=== PATIENT | female | born 1960 | race American Indian/Alaskan Native ===

== ENCOUNTER 2016-07-30 18:59 | Inpatient (IN) | payer MEDICAID ==
[2016-07-30 18:59] VITALS: PULSE 85; BMI 22.6
[2016-07-30] MEDS ORDERED: MethylPREDNISolone 40 mg Vial IVP STA (19:36)
[2016-07-30] MEDS ORDERED: Albuterol-Ipratrop 3 mg / 0.5 (3 ml) UD INH STA ×3 (19:36)
--- NOTE | 2016-07-30 19:47 | C.PDOC ---
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 Patient denies fever, nausea, vomiting, diarrhea, or any other complaints. Time Seen by Provider: 07/30/16 19:28 Chief Complaint (Nursing): Shortness Of Breath History Per: Patient History/Exam Limitations: no limitations Onset/Duration Of Symptoms: Days (Few days) Current Symptoms Are (Timing): Still Present Severity: Mild Associated Symptoms: denies: Fever, Chills, Chest Pain, Dizziness Recent travel outside of the [place]: No Past Medical History Reviewed: Historical Data, Nursing Documentation, Vital Signs Vital Signs: Last Vital Signs Temp 98.2 F 07/30/16 19:14 Pulse 87 07/30/16 21:15 Resp 18 07/30/16 21:15 BP 131/89 07/30/16 21:15 Pulse Ox 100 07/30/16 21:15 - Medical History PMH: Asthma, CHF, COPD, HTN, Pneumonia Denies: Chronic Kidney Disease - [facility] Procedures ASSISTANCE WITH RESPIRATORY VENTILATION, 24-96 HRS, CPAP (02/14/16) RESPIRATORY VENTILATION, 24-96 CONSECUTIVE HOURS (02/14/16) ULTRASONOGRAPHY OF RIGHT AND LEFT HEART, TRANSESOPHAGEAL (07/28/15) Family History: States: Unknown Family Hx - Social History Hx Alcohol Use: No Hx Substance Use: Yes (hx of herion use) - Immunization History Hx Tetanus Toxoid Vaccination: No Hx Influenza Vaccination: No Hx Pneumococcal Vaccination: No Review Of Systems Except As Marked, All Systems Reviewed And Found Negative. Constitutional: Negative for: Fever, Chills Cardiovascular: Negative for: Chest Pain Respiratory: Positive for: Cough, Shortness of Breath Gastrointestinal: Negative for: Nausea, Vomiting, Diarrhea Neurological: Negative for: Headache, Dizziness Physical Exam - Physical Exam Appears: Non-toxic Skin: Warm, Dry, No Rash Head: Atraumatic, Normacephalic Eye(s): bilateral: Normal Inspection Oral Mucosa: Moist Neck: Normal ROM, Supple Cardiovascular: Rhythm Regular Respiratory: Decreased Breath Sounds (Bilaterally), Wheezing (scattered) Gastrointestinal/Abdominal: Soft, No Tenderness, No Guarding, No Rebound Pelvic: Adnexal Tenderness (Mild left adnexal pain) Extremity: Normal ROM, No Tenderness Neurological/Psych: Oriented x3, Normal Speech, Normal Cognition ED Course And Treatment - Laboratory Results Result Diagrams: 07/30/16 19:57 07/30/16 19:57 ECG: Interpreted By Me, Viewed By Me ECG Rhythm: Sinus Rhythm Interpretation Of ECG: Nonspecific ST/T changes Rate From EC O2 Sat by Pulse Oximetry: 99 Medical Decision Making Medical Decision Making: suspected chf, copd - labs imaging pending Plan: -- EKG -- CXR -- Labs -- Duoneb 1130: pt with opacity to rll. antibiotics dosed. ct added for abd pain. dr caputo accepts. resident bedside. Disposition - Disposition Disposition: HOSPITALIZED Disposition Time: 23:23 Condition: STABLE - Clinical Impression Clinical Impression: Chr obstructive pulmonary disease w/ acute lower respiratory infxn, Acute on chronic systolic CHF (congestive heart failure) - Scribe Statement The provider has reviewed the documentation as recorded by the Scribe Jimmie Lara All medical record entries made by the Scribe were at my direction and personally dictated by me. I have reviewed the chart and agree that the record accurately reflects my personal performance of the history, physical exam, medical decision making, and the department course for this patient. I have also personally directed, reviewed, and agree with the discharge instructions and disposition. Decision To Admit - Pt Status Changed To: Hospital Disposition Of: Inpatient - Admit Certification Admit to Inpatient:: After my assessment, the patient will require hospitalization for at least two midnights. This is because of the severity of symptoms shown, intensity of services needed, and/or the medical risk in this patient being treated as an outpatient. - InPatient: Physician Admission Certification: I certify that this patient requires 2 or more midnights of care for the following reason:: pt poor outpt candidate, low EF, needs iv dureisis. persistent wheezing in er - . Bed Request Type: Telemetry Admitting Physician: Sascha Caputo Jr. Patient Diagnosis: Chr obstructive pulmonary disease w/ acute lower respiratory infxn, Acute on chronic systolic CHF (congestive heart failure)
[2016-07-30 20:04] LABS: BASO # 0.1 K/uL (0.0-0.2); BASO % 0.8 % (0.0-2.0); EOS # 0.1 K/uL (0.0-0.7); EOS % 0.9 % (0.0-4.0); HEMATOCRIT 37.1 % (34.0-47.0); LYMPH # 1.6 K/uL (1.0-4.3); LYMPH % 12.5 % (20.0-40.0); MEAN CELL VOLUME 72.2 fL (81.0-99.0); MEAN CORPUSCULAR HEMOGLOBIN 22.8 pg (27.0-31.0); MEAN CORPUSCULAR HGB CONC 31.6 g/dL (33.0-37.0); MONO # 0.7 K/uL (0.0-0.8); MONO % 5.8 % (0.0-10.0); RED CELL DISTRIBUTION WIDTH 18.3 % (11.5-14.5)
[2016-07-30] MEDS ORDERED: Albuterol-Ipratrop 3 mg / 0.5 (3 ml) UD ONE (20:05)
[2016-07-30 20:09] LABS: CHLORIDE 90 mmol/L (98-107); POTASSIUM 4.1 mmol/L (3.6-5.2); SODIUM 130 mmol/L (132-148)
[2016-07-30 20:10] LABS: VENOUS BLOOD GAS BASE EXCESS 3.7 mmol/L (0.0-2.0); VENOUS BLOOD GAS PCO2 43 mmHg (40-60); VENOUS BLOOD PH 7.43 (7.32-7.43)
[2016-07-30 20:10] LABS: INR 1.2
[2016-07-30 20:11] LABS: GFR AFRICAN-AMERICAN > 60
[2016-07-30 20:12] LABS: ALB/GLOB RATIO 0.9 (1.0-2.1); ALKALINE PHOSPHATASE 81 U/L (38-126); ALT/SGPT 11 U/L (9-52); AST/SGOT 22 U/L (14-36); BLOOD UREA NITROGEN 16 mg/dL (7-17); CALCIUM 9.1 mg/dl (8.6-10.4); CARBON DIOXIDE 30 mmol/L (22-30); GLUCOSE,RANDOM 95 mg/dL (65-105); TOTAL PROTEIN 8.2 g/dL (6.3-8.3)
[2016-07-30] MEDS ORDERED: cefTRIAXone IV 1 gm in Dextros 50 ML IVPB ONE ×2 (20:17→20:43)
[2016-07-30] MEDS ORDERED: Azithromycin 500 MG in Sodium Chloride 0.9% 250 ML IVPB STA (20:17)
[2016-07-30] MEDS ORDERED: Azithromycin 500mg/250ML NS 500 MG/250 ML BAG IVPB ONE (20:43)
[2016-07-30] MEDS ORDERED: Iodixanol 320 MG/ML 100 ML BOTTLE IV ONE (21:52)
[2016-07-30] MEDS ORDERED: Albuterol HFA 90 mcg/actuation (8 g) IH PRN (21:53)
[2016-07-30] MEDS ORDERED: Albuterol-Ipratrop 3 mg / 0.5 (3 ml) UD INH PRN (21:56)
[2016-07-30] MEDS: Sodium Chloride 0.9% 1,000 ML IV SCH (23:05)
--- NOTE | 2016-07-30 23:16 | CT ---
EXAM: CT Abdomen and Pelvis With Intravenous Contrast CLINICAL HISTORY: 56 years old, female; Pain; Abdominal pain; Generalized; Additional info: Abd pain TECHNIQUE: Axial computed tomography images of the abdomen and pelvis with intravenous contrast. This CT exam was performed using one or more of the following dose reduction techniques: automated exposure control, adjustment of the mA and/or kV according to patient size, and/or use of iterative reconstruction technique. Coronal and sagittal reformatted images were created and reviewed. CONTRAST: 100 mL of VISIPAQUE 320 administered intravenously. COMPARISON: No relevant prior studies available. FINDINGS: Technically limited study. Cardiomegaly. Atelectasis/crowding of markings at lung bases. Limited evaluation of lung bases. Atherosclerosis. The liver, spleen and adrenal glands demonstrate no acute abnormalities. Evidence of pancreatic atrophy. Limited evaluation of the pancreas. Evidence of cholelithiasis. The kidneys are symmetric with no evidence of hydronephrosis. Fat containing right lumbar hernia posterior to the kidney with stranding. Limited evaluation of bowel without enteric contrast. No bowel obstruction. Cannot exclude mild bowel inflammation or underlying as visualized. Evidence of 2.6 cm collection in the cul-de-sac to the right of the rectum, uncertain etiology. Degenerative changes. IMPRESSION: Technically limited study. Cardiomegaly. Atelectasis/crowding of markings at lung bases. Limited evaluation of lung bases. Evidence of pancreatic atrophy. Limited evaluation of the pancreas. Evidence of cholelithiasis. Fat containing right lumbar hernia posterior to the kidney with stranding. Limited evaluation of bowel without enteric contrast. No bowel obstruction. Cannot exclude mild bowel inflammation or underlying as visualized. Evidence of 2.6 cm collection in the cul-de-sac to the right of the rectum, uncertain etiology.
[2016-07-30 23:25] VITALS: O2SAT 99
--- NOTE | 2016-07-31 01:48 | CP.PCM.HP ---
History of Present Illness - History of Present Illness History of Present Illness: cc: "productive cough and SOB" HPI: Patient is a 56 year old male with PMHx of systolic CHF, HTN, IDDM, CVA presenting to the ED complaining of shortness of breath and productive cough for 2 days. Patient reports that her cough has been worsening, with white/green sputum. Patient denies any fevers, chills, chest pain. She reports she still smokes at home and has no intention of stopping. She also reports using 3 bags of heroin a day which she reportedly snorts. She also reports some abdominal pain and says she is starting to go through withdrawals. She complains of constipation and has not had a bowel movement for 2 weeks. She denies any other complaints. PMD: Dr. Bishop PMH: as stated above PSH: AICD Allergies: NKDA FH: unknown SH: heavy smoker for years, still smokes about 3-4 ciggs per day. Denies alcohol use but uses 3 bags of heroin a day. Present on Admission - Present on Admission Any Indicators Present on Admission: No Review of Systems - Constitutional Constitutional: absent: Chills, Fever - EENT Eyes: absent: Change in Vision Ears: absent: Decreased Hearing Nose/Mouth/Throat: absent: Dysphagia, Sore Throat - Cardiovascular Cardiovascular: Dyspnea. absent: Chest Pain, Edema - Respiratory Respiratory: Cough, Dyspnea - Gastrointestinal Gastrointestinal: Abdominal Pain (LLQ and RLQ), Constipation. absent: Diarrhea , Nausea, Vomiting - Genitourinary Genitourinary: absent: Dysuria - Musculoskeletal Musculoskeletal: Back Pain (chronic). absent: Numbness, Tingling - Integumentary Integumentary: absent: Lesions, Wounds - Neurological Neurological: Focal Weakness (residual from past CVA), Weakness - Psychiatric Psychiatric: absent: Anxiety, Depression - Endocrine Endocrine: absent: Change in Body Appearance, Fatigue, Palpitations Past Patient History - Tetanus Immunizations Tetanus Immunization: Up to Date - Past Medical History & Family History Past Medical History?: Yes - Past Social History Smoking Status: Heavy Smoker > 10 Cigarettes Daily Alcohol: None Drugs: Opiates Home Situation {Lives}: With Family - CARDIAC Hx Congestive Heart Failure: Yes Hx Hypertension: Yes - PULMONARY Hx Asthma: Yes Hx Chronic Obstructive Pulmonary Disease (COPD): Yes Hx Pneumonia: Yes - NEUROLOGICAL HX Cerebrovascular Accident: Yes (R sided weakness) - HEENT Hx HEENT Problems: Yes Other/Comment: wears glasses - RENAL Hx Chronic Kidney Disease: No - ENDOCRINE/METABOLIC Hx Diabetes Mellitus Type 2: Yes - HEMATOLOGICAL/ONCOLOGICAL Hx Blood Disorders: Yes Hx Cancer: Yes (Breast and lung) - INTEGUMENTARY Hx Dermatological Problems: No - MUSCULOSKELETAL/RHEUMATOLOGICAL Hx Musculoskeletal Disorders: Yes Hx Falls: Yes - GASTROINTESTINAL Hx Gastrointestinal Disorders: Yes Hx Constipation: Yes - GENITOURINARY/GYNECOLOGICAL Hx Genitourinary Disorders: Yes Hx Incontinence: Yes - PSYCHIATRIC Hx Substance Use: Yes (hx of herion use) - SURGICAL HISTORY Hx Surgeries: Yes Hx Tubal Ligation: Yes Other/Comment: AICD implantation 2015 - ANESTHESIA Hx Anesthesia: Yes Hx Anesthesia Reactions: No Hx Malignant Hyperthermia: No Meds Allergies/Adverse Reactions: Allergies Allergy/AdvReac Type Severity Reaction Status Date / Time No Known Allergies Allergy Verified 07/30/16 19:16 Physical Exam - Constitutional Appears: Non-toxic, No Acute Distress, Older Than Stated Age - Head Exam Head Exam: ATRAUMATIC, NORMOCEPHALIC - Eye Exam Eye Exam: Conjunctival injection, EOMI, PERRL Pupil Exam: NORMAL ACCOMODATION, PERRL - ENT Exam ENT Exam: Mucous Membranes Moist. absent: Normal Oropharynx (poor dentition) - Respiratory Exam Respiratory Exam: Decreased Breath Sounds (bilaterl lower lobes), Clear to Auscultation Bilateral, NORMAL BREATHING PATTERN. absent: Rales, Rhonchi, Wheezes - Cardiovascular Exam Cardiovascular Exam: REGULAR RHYTHM, +S1, +S2, Systolic Murmur (grade 2 systolic ). absent: Gallop, Rubs - GI/Abdominal Exam GI & Abdominal Exam: Soft, Tenderness (LLQ and RLQ). absent: Distended, Guarding, Hernia - Rectal Exam Rectal Exam: Deferred - Extremities Exam Extremities exam: Negative for: normal inspection (right sided weakness, ), pedal edema, tenderness - Back Exam Back exam: NORMAL INSPECTION. absent: rash noted, tenderness - Neurological Exam Neurological exam: Alert, CN II-XII Intact, Oriented x3 Additional comments: right sided weakness from past CVA - Psychiatric Exam Psychiatric exam: Flat Affect - Skin Skin Exam: Dry, Intact, Normal Color, Warm Results - Vital Signs Recent Vital Signs: Last Vital Signs Temp 97.9 F 07/31/16 00:40 Pulse 77 07/31/16 00:40 Resp 20 07/31/16 00:40 BP 124/81 07/31/16 00:40 Pulse Ox 99 07/31/16 00:40 - Labs Result Diagrams: 07/30/16 19:57 07/30/16 19:57 Assessment & Plan - Assessment and Plan (Free Text) Plan: SOB w/ cough * CHF vs COPD exaccerbation * chest x ray- patch, atelectasis, AICD in place f/u official report * BNP 6080 * ECHO on 02/19/16 showed EF of 25-30% dilated left atrium and mitral regurge, and mild dyskinesis of inferior wall. [see full report] * Duonebs Q6 XOCHITL and Q2 PRN * Started Azithromycin 500 mg daily * Started Rocephin 1 gm daily * Lasix 20mg IV given in ED * Continue Lasix 40mg BID * Solumedrol 40mg IV Q12H * monitor symptoms Electrolyte abnormality * sodium and chloride borderline low * likely due to lasix * gentle rehydration Abdominal pain * Constipation vs withdrawal symptoms * Ct abd shows evidence of pancreatic atrophy, cholelithiasis, fat containing lumbar hernia, no bowel obstruction [see full report] * LFT's wnl * start colace BID * tylenol for pain HTN * resume home Coreg, isosorbide, and zestril * continue to monitor Drug abuse * advised on cessation * f/u UDS * Clonidine 0.1 Q8H for withdrawals DM * regular accuchecks * f/u A1C PPX * heparin 5000 U SC * Protonix 40mg po daily * zofran 4mg IVP Q6 PRN * SCD's Assessment and plan discussed with attending physician.
[2016-07-31] MEDS: Albuterol-Ipratrop 3 mg / 0.5 (3 ml) UD INH SCH ×3 (06:40→13:37)
[2016-07-31 07:27] LABS: BASO % 0.3 % (0.0-2.0); HEMATOCRIT 36.9 % (34.0-47.0); LYMPH # 1.3 K/uL (1.0-4.3); MEAN CELL VOLUME 71.7 fL (81.0-99.0); MEAN CORPUSCULAR HEMOGLOBIN 23.3 pg (27.0-31.0); MEAN CORPUSCULAR HGB CONC 32.4 g/dL (33.0-37.0); MONO # 0.1 K/uL (0.0-0.8); MONO % 0.7 % (0.0-10.0); RED CELL DISTRIBUTION WIDTH 18.3 % (11.5-14.5); WHITE BLOOD COUNT 12.6 K/uL (4.8-10.8)
[2016-07-31 07:55] LABS: CHLORIDE 93 mmol/L (98-107); POTASSIUM 4.1 mmol/L (3.6-5.2); SODIUM 131 mmol/L (132-148)
[2016-07-31 07:57] LABS: GFR AFRICAN-AMERICAN > 60
[2016-07-31 07:58] LABS: ALB/GLOB RATIO 0.9 (1.0-2.1); ALKALINE PHOSPHATASE 77 U/L (38-126); AST/SGOT 18 U/L (14-36); BILIRUBIN,TOTAL 0.7 mg/dL (0.2-1.3); BLOOD UREA NITROGEN 17 mg/dL (7-17); CARBON DIOXIDE 28 mmol/L (22-30); GLUCOSE,RANDOM 142 mg/dL (65-105); TOTAL PROTEIN 7.5 g/dL (6.3-8.3)
[2016-07-31 07:59] LABS: ALT/SGPT < 6 U/L (9-52); CALCIUM 8.5 mg/dl (8.6-10.4)
[2016-07-31] MEDS ORDERED: Fluticasone-Salmeterol 250-50mcg Diskus INH SCH (08:00)
--- NOTE | 2016-07-31 08:11 | RAD ---
PROCEDURE: CHEST RADIOGRAPH, 1 VIEW HISTORY: chest pain COMPARISON: 04/15/2016 FINDINGS: LUNGS: Left-sided pacemaker. Catheter tubing projects over the left deepti thorax. Patchy bibasilar airspace opacities with small bilateral pleural effusions and right mid to lower lung atelectasis. Biapical pleural thickening with upper lobe granulomatous changes. PLEURA: As above. CARDIOVASCULAR: Cardiomegaly. OSSEOUS STRUCTURES: Degenerative changes in the spine and shoulders. VISUALIZED UPPER ABDOMEN: Normal. OTHER FINDINGS: None. IMPRESSION: Left-sided pacemaker. Catheter tubing projects over the left deepti thorax. Patchy bibasilar airspace opacities with small bilateral pleural effusions and right mid to lower lung atelectasis. Biapical pleural thickening with upper lobe granulomatous changes.
[2016-07-31] MEDS: Pantoprazole 40 mg EC Tab PO SCH (09:11)
[2016-07-31] MEDS: MethylPREDNISolone 40 mg Vial IVP SCH ×2 (09:12→21:30)
--- NOTE | 2016-07-31 09:47 | RAD ---
PROCEDURE: CHEST RADIOGRAPH, 1 VIEW HISTORY: COPD exacerbation. COMPARISON: 07/30/2016 FINDINGS: LUNGS: Diffuse increased interstitial lung markings. Bibasilar airspace opacities. Small left pleural effusion. Right hilar prominence. Biapical pleural thickening with upper lobe granulomatous changes. PLEURA: As above. CARDIOVASCULAR: Cardiomegaly. Left-sided pacemaker. OSSEOUS STRUCTURES: Degenerative changes in the spine and shoulders. VISUALIZED UPPER ABDOMEN: Normal. OTHER FINDINGS: None. IMPRESSION: Diffuse increased interstitial lung markings. Bibasilar airspace opacities. Small left pleural effusion. Right hilar prominence. Biapical pleural thickening with upper lobe granulomatous changes.
--- NOTE | 2016-07-31 12:51 | CP.PCM.CON ---
History of Present Illness - History of Present Illness History of Present Illness: Reason for consultation: Shortness of breath/COPD exacerbation 56 year old male with PMHx of systolic CHF, HTN, IDDM, CVA presenting to the ED complaining of shortness of breath and productive cough for 2 days. Patient states cough is productive of yellowish sputum. Denies chest pain, denies fever or chills. She also reports some abdominal pain and says she is starting to go through withdrawals. Review of Systems - Review of Systems All systems: reviewed and no additional remarkable complaints except (Shortness of breath and productive cough) Past Patient History - Tetanus Immunizations Tetanus Immunization: Up to Date - Past Medical History & Family History Past Medical History?: Yes - Past Social History Smoking Status: Heavy Smoker > 10 Cigarettes Daily - CARDIAC Hx Congestive Heart Failure: Yes Hx Hypertension: Yes - PULMONARY Hx Asthma: Yes Hx Chronic Obstructive Pulmonary Disease (COPD): Yes Hx Pneumonia: Yes - NEUROLOGICAL HX Cerebrovascular Accident: Yes (R sided weakness) - HEENT Hx HEENT Problems: Yes Other/Comment: wears glasses - RENAL Hx Chronic Kidney Disease: No - ENDOCRINE/METABOLIC Hx Diabetes Mellitus Type 2: Yes - HEMATOLOGICAL/ONCOLOGICAL Hx Blood Disorders: Yes Hx Cancer: Yes (Breast and lung) - INTEGUMENTARY Hx Dermatological Problems: No - MUSCULOSKELETAL/RHEUMATOLOGICAL Hx Musculoskeletal Disorders: Yes Hx Falls: Yes - GASTROINTESTINAL Hx Gastrointestinal Disorders: Yes Hx Constipation: Yes - GENITOURINARY/GYNECOLOGICAL Hx Genitourinary Disorders: Yes Hx Incontinence: Yes - PSYCHIATRIC Hx Substance Use: Yes (hx of herion use) - SURGICAL HISTORY Hx Surgeries: Yes Hx Tubal Ligation: Yes Other/Comment: AICD implantation 2015 - ANESTHESIA Hx Anesthesia: Yes Hx Anesthesia Reactions: No Hx Malignant Hyperthermia: No Meds Allergies/Adverse Reactions: Allergies Allergy/AdvReac Type Severity Reaction Status Date / Time No Known Allergies Allergy Verified 07/30/16 19:16 - Medications Medications: Current Medications Acetaminophen (Tylenol 325mg Tab) 650 mg PO Q6 PRN PRN Reason: Pain, moderate (4-7) Last Admin: 07/30/16 23:05 Dose: 650 mg Albuterol (Ventolin Hfa 90 Mcg/Actuation (8 G)) 2 puff IH RQID PRN PRN Reason: Wheezing Albuterol/Ipratropium (Duoneb 3 Mg/0.5 Mg (3 Ml) Ud) 3 ml INH RQ6 [facility] Last Admin: 07/31/16 08:50 Dose: Not Given Albuterol/Ipratropium (Duoneb 3 Mg/0.5 Mg (3 Ml) Ud) 3 ml INH RQ2 PRN PRN Reason: Shortness of Breath Carvedilol (Coreg) 12.5 mg PO BID [facility] Last Admin: 07/31/16 09:11 Dose: 12.5 mg Clonidine HCl (Catapres) 0.1 mg PO Q8H [facility] Last Admin: 07/31/16 09:11 Dose: 0.1 mg Docusate Sodium (Colace) 100 mg PO BID [facility] Last Admin: 07/31/16 09:11 Dose: 100 mg Furosemide (Lasix) 40 mg PO BID [facility] Last Admin: 07/31/16 09:10 Dose: 40 mg Heparin Sodium (Porcine) (Heparin) 5,000 units SC Q8 [facility] Last Admin: 07/31/16 05:48 Dose: Not Given Sodium Chloride (Sodium Chloride 0.9%) 1,000 mls @ 80 mls/hr IV .[id number] [facility] Last Admin: 07/30/16 23:05 Dose: 80 mls/hr Azithromycin 500 mg/ Sodium (Chloride) 250 mls @ 250 mls/hr IVPB Q24H [facility] Ceftriaxone Sodium 1 gm/ (Sodium Chloride) 100 mls @ 100 mls/hr IVPB Q24H [facility] Isosorbide Mononitrate (Imdur) 60 mg PO DAILY [facility] Last Admin: 07/31/16 09:12 Dose: 60 mg Lisinopril (Zestril) 40 mg PO DAILY [facility] Last Admin: 07/31/16 09:11 Dose: 40 mg Methylprednisolone (Solu-Medrol) 40 mg IVP Q12 [facility] Last Admin: 07/31/16 09:12 Dose: 40 mg Ondansetron HCl (Zofran Inj) 4 mg IVP Q6 PRN PRN Reason: Nausea/Vomiting Pantoprazole Sodium (Protonix Ec Tab) 40 mg PO DAILY [facility] Last Admin: 07/31/16 09:11 Dose: 40 mg Pneumococcal Polyvalent Vaccine (Pneumovax 23 Vaccine) 0.5 ml IM .ONCE ONE Stop: 08/02/16 10:01 Fluticasone/Salmeterol (Advair Diskus 250/50) 1 puff INH RQ12 XOCHITL Tiotropium [place] (Spiriva) 18 mcg INH RQ24 XOCHITL Physical Exam - Head Exam Head Exam: ATRAUMATIC, NORMOCEPHALIC - Eye Exam Eye Exam: Normal appearance - ENT Exam ENT Exam: Mucous Membranes Moist - Neck Exam Neck exam: Positive for: Normal Inspection - Respiratory Exam Respiratory Exam: Decreased Breath Sounds - Cardiovascular Exam Cardiovascular Exam: REGULAR RHYTHM - GI/Abdominal Exam GI & Abdominal Exam: Normal Bowel Sounds, Soft - Extremities Exam Extremities exam: Positive for: normal inspection - Neurological Exam Neurological exam: Alert, Oriented x3 Results - Vital Signs Recent Vital Signs: Last Vital Signs Temp 98.2 F 07/31/16 08:01 Pulse 71 07/31/16 08:01 Resp 18 07/31/16 08:01 BP 143/84 07/31/16 09:11 Pulse Ox 99 07/31/16 08:01 - Labs Result Diagrams: 07/31/16 07:09 07/31/16 07:09 Labs: Laboratory Results - last 24 hr 07/31/16 07/31/16 07:09 07:09 WBC 12.6 H RBC 5.15 Hgb 12.0 Hct 36.9 MCV 71.7 L MCH 23.3 L MCHC 32.4 L RDW 18.3 H Plt Count 208 MPV 8.0 Neut % (Auto) 89.0 H Lymph % (Auto) 10.0 L [place] % (Auto) 0.7 Eos % (Auto) 0.0 Baso % (Auto) 0.3 Neut # 11.2 H Lymph # 1.3 [place] # 0.1 Eos # 0.0 Baso # 0.0 Sodium 131 L Potassium 4.1 Chloride 93 L Carbon Dioxide 28 Anion Gap 14 BUN 17 Creatinine 1.1 Est GFR ( Amer) > 60 Est GFR (Non-Af Amer) 51 Random Glucose 142 H Calcium 8.5 L Total Bilirubin 0.7 AST 18 ALT < 6 L D Alkaline Phosphatase 77 NT-Pro-B Natriuret Pep 4130 H Total Protein 7.5 Albumin 3.5 Globulin 4.0 H Albumin/Globulin Ratio 0.9 L Assessment & Plan (1) Chr obstructive pulmonary disease w/ acute lower respiratory infxn Status: Acute Comment: 56-year-old female with long history of smoking presented with increasing shortness of breath and productive cough consistent with COPD excellent cerebration. Continue IV steroids, nebulizer treatment. Continue IV antibiotics. Patient advised to quit smoking
[2016-07-31] MEDS: Sodium Chloride 0.9% 1,000 ML IV SCH (13:08)
--- NOTE | 2016-07-31 14:42 | CP.PCM.PN ---
<Richard Khan - Last Filed: 07/31/16 14:45> Subjective - Date & Time of Evaluation Date of Evaluation: 07/31/16 Time of Evaluation: 09:00 - Subjective Subjective: PGY2 on medicine Dr. Anguiano service: Pt seen and examined at bedside this morning. Pt reports slight improvement of SOB overnight. Pt also requests methadone for heroin, which she last used yesterday. Objective - Vital Signs/Intake and Output Vital Signs (last 24 hours): Temp Pulse Resp BP Pulse Ox 98.2 F 71 18 143/84 99 07/31/16 08:01 07/31/16 08:01 07/31/16 08:01 07/31/16 09:11 07/31/16 08:01 Intake and Output: 07/31/16 07/31/16 06:59 18:59 Intake Total 790 Balance 790 - Medications Medications: Current Medications Acetaminophen (Tylenol 325mg Tab) 650 mg PO Q6 PRN PRN Reason: Pain, moderate (4-7) Last Admin: 07/30/16 23:05 Dose: 650 mg Albuterol (Ventolin Hfa 90 Mcg/Actuation (8 G)) 2 puff IH RQID PRN PRN Reason: Wheezing Albuterol/Ipratropium (Duoneb 3 Mg/0.5 Mg (3 Ml) Ud) 3 ml INH RQ6 [facility] Last Admin: 07/31/16 13:37 Dose: Not Given Albuterol/Ipratropium (Duoneb 3 Mg/0.5 Mg (3 Ml) Ud) 3 ml INH RQ2 PRN PRN Reason: Shortness of Breath Carvedilol (Coreg) 12.5 mg PO BID [facility] Last Admin: 07/31/16 09:11 Dose: 12.5 mg Clonidine HCl (Catapres) 0.1 mg PO Q8H [facility] Last Admin: 07/31/16 09:11 Dose: 0.1 mg Docusate Sodium (Colace) 100 mg PO BID [facility] Last Admin: 07/31/16 09:11 Dose: 100 mg Furosemide (Lasix) 40 mg PO BID [facility] Last Admin: 07/31/16 09:10 Dose: 40 mg Heparin Sodium (Porcine) (Heparin) 5,000 units SC Q8 [facility] Last Admin: 07/31/16 13:36 Dose: Not Given Sodium Chloride (Sodium Chloride 0.9%) 1,000 mls @ 80 mls/hr IV .[id number] [facility] Last Admin: 07/31/16 13:08 Dose: 80 mls/hr Azithromycin 500 mg/ Sodium (Chloride) 250 mls @ 250 mls/hr IVPB Q24H [facility] Ceftriaxone Sodium 1 gm/ (Sodium Chloride) 100 mls @ 100 mls/hr IVPB Q24H [facility] Isosorbide Mononitrate (Imdur) 60 mg PO DAILY [facility] Last Admin: 07/31/16 09:12 Dose: 60 mg Lisinopril (Zestril) 40 mg PO DAILY [facility] Last Admin: 07/31/16 09:11 Dose: 40 mg Methylprednisolone (Solu-Medrol) 40 mg IVP Q12 [facility] Last Admin: 07/31/16 09:12 Dose: 40 mg Ondansetron HCl (Zofran Inj) 4 mg IVP Q6 PRN PRN Reason: Nausea/Vomiting Pantoprazole Sodium (Protonix Ec Tab) 40 mg PO DAILY [facility] Last Admin: 07/31/16 09:11 Dose: 40 mg Pneumococcal Polyvalent Vaccine (Pneumovax 23 Vaccine) 0.5 ml IM .ONCE ONE Stop: 08/02/16 10:01 Fluticasone/Salmeterol (Advair Diskus 250/50) 1 puff INH RQ12 [facility] Tiotropium [place] (Spiriva) 18 mcg INH RQ24 [facility] - Labs Labs: 07/31/16 07:09 07/31/16 07:09 PT 13.1 SECONDS (9.7-12.2) H 07/30/16 19:57 INR 1.2 07/30/16 19:57 APTT 31 SECONDS (21-34) 07/30/16 19:57 - Constitutional Appears: Non-toxic, No Acute Distress, Cachectic, Chronically Ill - Head Exam Head Exam: NORMAL INSPECTION - Eye Exam Eye Exam: Normal appearance - ENT Exam ENT Exam: Mucous Membranes Moist - Respiratory Exam Respiratory Exam: Decreased Breath Sounds, Rhonchi, NORMAL BREATHING PATTERN - Cardiovascular Exam Cardiovascular Exam: REGULAR RHYTHM, +S1, +S2. absent: Gallop, Rubs - GI/Abdominal Exam GI & Abdominal Exam: Soft, Normal Bowel Sounds. 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 * BNP 6080 * ECHO on 02/19/16 showed EF of 25-30% dilated left atrium and mitral regurge, and mild dyskinesis of inferior wall. [see full report] * Pulm Dr. Zeng consulted, help appreciated * Cardio Dr. Patel consulted, help appreciated * Duonebs Q6 [facility] and Q2 PRN * Started Azithromycin 500 mg daily * Started Rocephin 1 gm daily * Lasix 20mg IV given in ED * Continue Lasix 40mg BID * Solumedrol 40mg IV Q12H * Spiriva and Advair * monitor symptoms * F/U blood culture Electrolyte abnormality * sodium and chloride borderline low * likely due to lasix * gentle rehydration Abdominal pain * Constipation vs withdrawal symptoms * Ct abd shows evidence of pancreatic atrophy, cholelithiasis, fat containing lumbar hernia, no bowel obstruction [see full report] * LFT's wnl * start colace BID * tylenol for pain * F/U urine culture HTN * resume home Coreg, isosorbide, and zestril * continue to monitor Heroin use disorder * advised on cessation * f/u UDS * Clonidine 0.1 Q8H for withdrawals * Psych Dr. Barron consulted, help appreciated DM * regular accuchecks * f/u A1C PPX * heparin 5000 U SC * Protonix 40mg po daily * zofran 4mg IVP Q6 PRN * SCD's Assessment and plan discussed with attending physician. <Sascha Anguiano Jr. - Last Filed: 08/06/16 11:01> Objective - Vital Signs/Intake and Output Vital Signs (last 24 hours): Temp Pulse Resp BP Pulse Ox 98.4 F 60 17 178/102 H 99 08/01/16 07:55 08/01/16 07:55 08/01/16 07:55 08/01/16 10:31 08/01/16 07:55 - Labs Labs: 08/01/16 08:12 08/01/16 08:12 PT 13.1 SECONDS (9.7-12.2) H 07/30/16 19:57 INR 1.2 07/30/16 19:57 APTT 31 SECONDS (21-34) 07/30/16 19:57 Attending/Attestation - Attestation I have personally seen and examined this patient.: Yes I have fully participated in the care of the patient.: Yes I have reviewed all pertinent clinical information, including history, physical exam and plan: Yes Notes (Text): 08/06/16 11:01 Agree with resident note and plan of care
--- NOTE | 2016-07-31 15:56 | PCM.PSYCH ---
Initial Psychiatric Evaluation - Initial Psychiatric Evaluation Legal Status: Capacity Chief Complaint (in patient's own words): [id number] heroin and i am having withdrawal symptoms. Patient's Reaction to Hospitalization: i needed to come to the hhospital mbecaue i was short of breath. History of Present Illness and Precipitating Events: Pt is a 56 year old black domiciled, disabled female who came to the hospital because of SOB. Pt uses 3 bags of heroun na bday. She last used yesterday. Pt has no legal, miilitary or psychiatric history. pt suffers from CHF, IDDM, and HTN. Pt lives with daughter. She has a total of 3 daughters. Pt states there is no family history of mental illness or substance abuse pt sytarted using heroin in her 20s. pt snorts the heroin she does not use heroin intravenously Current Medications: Active Medications Generic Name Dose Route Start Last Admin Trade Name Freq PRN Reason Stop Dose Admin Acetaminophen 650 mg 07/30/16 21:47 07/30/16 23:05 Tylenol 325mg Tab PO 650 mg Q6 PRN Administration Pain, moderate (4-7) Albuterol 2 puff 07/30/16 21:53 Ventolin Hfa 90 Mcg/Actuation (8 G) IH RQID PRN Wheezing Albuterol/Ipratropium 3 ml 07/31/16 02:00 07/31/16 13:37 Duoneb 3 Mg/0.5 Mg (3 Ml) Ud INH Not Given RQ6 [facility] Albuterol/Ipratropium 3 ml 07/30/16 21:56 Duoneb 3 Mg/0.5 Mg (3 Ml) Ud INH RQ2 PRN Shortness of Breath Carvedilol 12.5 mg 07/31/16 10:00 07/31/16 09:11 Coreg PO 12.5 mg BID [facility] Administration Clonidine HCl 0.1 mg 07/31/16 02:02 07/31/16 09:11 Catapres PO 0.1 mg Q8H [facility] Administration Docusate Sodium 100 mg 07/31/16 10:00 07/31/16 09:11 Colace PO 100 mg BID [facility] Administration Furosemide 40 mg 07/31/16 10:00 07/31/16 09:10 Lasix PO 40 mg BID [facility] Administration Heparin Sodium (Porcine) 5,000 units 07/31/16 06:00 07/31/16 13:36 Heparin SC Not Given Q8 [facility] Sodium Chloride 1,000 mls @ 80 mls/hr 07/30/16 22:00 07/31/16 13:08 Sodium Chloride 0.9% IV 80 mls/hr .[id number] [facility] Administration Azithromycin 500 mg/ Sodium 250 mls @ 250 mls/hr 07/31/16 22:00 Chloride IVPB Q24H [facility] Ceftriaxone Sodium 1 gm/ 100 mls @ 100 mls/hr 07/31/16 21:00 Sodium Chloride IVPB Q24H [facility] Isosorbide Mononitrate 60 mg 07/31/16 10:00 07/31/16 09:12 Imdur PO 60 mg DAILY [facility] Administration Lisinopril 40 mg 07/31/16 10:00 07/31/16 09:11 Zestril PO 40 mg DAILY [facility] Administration Methylprednisolone 40 mg 07/31/16 10:00 07/31/16 09:12 Solu-Medrol IVP 40 mg Q12 [facility] Administration Ondansetron HCl 4 mg 07/30/16 21:47 Zofran Inj IVP Q6 PRN Nausea/Vomiting Pantoprazole Sodium 40 mg 07/31/16 10:00 07/31/16 09:11 Protonix Ec Tab PO 40 mg DAILY [facility] Administration Pneumococcal Polyvalent Vaccine 0.5 ml 08/02/16 10:00 Pneumovax 23 Vaccine IM 08/02/16 10:01 .ONCE ONE Fluticasone/Salmeterol 1 puff 07/31/16 08:00 Advair Diskus 250/50 INH RQ12 [facility] Tiotropium [place] 18 mcg 08/01/16 08:00 Spiriva INH RQ24 [facility] Past Psychiatric History - Past Psychiatric History Previous Treatment History: None Pertinent Medical Hx (Current Medical&Sleep Prob, Allergies): Allergies Allergy/AdvReac Type Severity Reaction Status Date / Time No Known Allergies Allergy Verified 07/30/16 19:16 Mometasone/Formoterol [Dulera 200 Mcg/5 Mcg Inhaler] 2 puff IH BID 07/28/15 Albuterol HFA [Ventolin HFA 90 mcg/actuation (8 g)] 2 puff IH QID PRN #1 inhaler 04/19/16 Carvedilol [Coreg] 12.5 mg PO BID #60 tab 04/19/16 Furosemide [Lasix] 40 mg PO BID #60 tab 04/19/16 Isosorbide Mononitrate [Imdur] 60 mg PO DAILY 07/30/16 Lisinopril [Zestril] 40 mg PO DAILY 07/30/16 hydrALAZINE [Apresoline] 25 mg PO BID 07/30/16 Review of Systems - Constitutional Constitutional: Weakness, Malaise - EENT Eyes: UNREMARKABLE Ears: UNREMARKABLE Additional comments: rhinorrhea - Cardiovascular Cardiovascular: UNREMARKABLE - Respiratory Respiratory: Cough, Dyspnea, Snoring - Gastrointestinal Gastrointestinal: Cramping - Genitourinary Genitourinary: Hx Renal/Bladder Calculi - Reproductive: Female Reproductive:Female: UNREMARKABLE - Menstruation Menstruation: UNREMARKABLE - Musculoskeletal Musculoskeletal: Arthralgias, Myalgias - Integumentary Integumentary: UNREMARKABLE - Neurological Neurological: UNREMARKABLE - Psychiatric Psychiatric: Anxiety - Endocrine Endocrine: UNREMARKABLE Mental Status Examination - Personal Presentation Personal Presentation: Looks older than stated age - Affect Affect: Blunted - Motor Activity Motor Activity: Calm - Reliability in Providing Information Reliability in Providing Information: Fair - Speech Speech: Relevant, Coherent - Mood Mood: Anxious - Formal Thought Process Formal Thought Process: No Impairment DSM 5 DX - DSM 5 DSM 5 Diagnosis: heroin withdrawal heroin use disorder mild - Recommended/Plan of Treatment Treatment Recommendations and Plan of Treatment: opipid withdrawal methadone taper starting at 10 mg opioid ude disorder mild PR CBT individual supportive therapy, psychoeducation Projected ELOS: 7 days Prognosis: fair Discharge Plan and Discharge Criteria: no acute withdrawal symptoms - Smoking Cessation Smoking Cessation Initiated: No Reason for not providing: pt refuses to quit smoking
[2016-07-31] MEDS ORDERED: Azithromycin 500 MG in Sodium Chloride 0.9% 250 ML IVPB SCH (22:00)
[2016-08-01] MEDS: Albuterol-Ipratrop 3 mg / 0.5 (3 ml) UD INH SCH ×2 (01:41→08:17)
[2016-08-01] MEDS: Sodium Chloride 0.9% 1,000 ML IV SCH (04:46)
--- NOTE | 2016-08-01 05:00 | CP.PCM.PN ---
<Inderjit Lugo - Last Filed: 08/01/16 06:59> Subjective - Date & Time of Evaluation Date of Evaluation: 08/01/16 Time of Evaluation: 06:35 - Subjective Subjective: Hospitalist Note-Dr. Anguiano's service Patient seen and examined at bedside. She reports having some arm pain around the site of her IV. Her breathing has improved but she has a mild cough. She states she is withdrawing and feels horrible. Per nursing, patient became agitated over night and her blood pressure has been elevated. The patient denies any fever, chills, productive cough. chest pain, or abdominal pain but has diffuse aches. Objective - Vital Signs/Intake and Output Vital Signs (last 24 hours): Temp Pulse Resp BP Pulse Ox 98 F 63 20 178/104 H 99 08/01/16 04:50 08/01/16 04:50 07/31/16 23:05 08/01/16 04:50 07/31/16 23:05 Intake and Output: 07/31/16 08/01/16 18:59 06:59 Intake Total 900 Balance 900 - Medications Medications: Current Medications Acetaminophen (Tylenol 325mg Tab) 650 mg PO Q6 PRN PRN Reason: Pain, moderate (4-7) Last Admin: 08/01/16 00:22 Dose: 650 mg Albuterol (Ventolin Hfa 90 Mcg/Actuation (8 G)) 2 puff IH RQID PRN PRN Reason: Wheezing Albuterol/Ipratropium (Duoneb 3 Mg/0.5 Mg (3 Ml) Ud) 3 ml INH RQ6 [facility] Last Admin: 08/01/16 01:41 Dose: Not Given Albuterol/Ipratropium (Duoneb 3 Mg/0.5 Mg (3 Ml) Ud) 3 ml INH RQ2 PRN PRN Reason: Shortness of Breath Carvedilol (Coreg) 12.5 mg PO BID [facility] Last Admin: 07/31/16 17:20 Dose: 12.5 mg Clonidine HCl (Catapres) 0.1 mg PO Q8H [facility] Last Admin: 08/01/16 03:52 Dose: 0.1 mg Docusate Sodium (Colace) 100 mg PO BID [facility] Last Admin: 07/31/16 17:19 Dose: 100 mg Furosemide (Lasix) 40 mg PO BID [facility] Last Admin: 07/31/16 17:20 Dose: 40 mg Heparin Sodium (Porcine) (Heparin) 5,000 units SC Q8 [facility] Last Admin: 07/31/16 21:29 Dose: Not Given Sodium Chloride (Sodium Chloride 0.9%) 1,000 mls @ 80 mls/hr IV .[id number] [facility] Last Admin: 08/01/16 04:46 Dose: Not Given Azithromycin 500 mg/ Sodium (Chloride) 250 mls @ 250 mls/hr IVPB Q24H [facility] Last Admin: 07/31/16 21:31 Dose: 250 mls/hr Ceftriaxone Sodium 1 gm/ (Sodium Chloride) 100 mls @ 100 mls/hr IVPB Q24H [facility] Last Admin: 07/31/16 21:29 Dose: 100 mls/hr Isosorbide Mononitrate (Imdur) 60 mg PO DAILY [facility] Last Admin: 07/31/16 09:12 Dose: 60 mg Lisinopril (Zestril) 40 mg PO DAILY [facility] Last Admin: 07/31/16 09:11 Dose: 40 mg Methylprednisolone (Solu-Medrol) 40 mg IVP Q12 [facility] Last Admin: 07/31/16 21:30 Dose: 40 mg Ondansetron HCl (Zofran Inj) 4 mg IVP Q6 PRN PRN Reason: Nausea/Vomiting Last Admin: 08/01/16 00:00 Dose: 4 mg Pantoprazole Sodium (Protonix Ec Tab) 40 mg PO DAILY [facility] Last Admin: 07/31/16 09:11 Dose: 40 mg Pneumococcal Polyvalent Vaccine (Pneumovax 23 Vaccine) 0.5 ml IM .ONCE ONE Stop: 08/02/16 10:01 Fluticasone/Salmeterol (Advair Diskus 250/50) 1 puff INH RQ12 [facility] Tiotropium [place] (Spiriva) 18 mcg INH RQ24 [facility] - Labs Labs: 07/31/16 07:09 07/31/16 07:09 PT 13.1 SECONDS (9.7-12.2) H 07/30/16 19:57 INR 1.2 07/30/16 19:57 APTT 31 SECONDS (21-34) 07/30/16 19:57 - Constitutional Appears: No Acute Distress, Cachectic, Chronically Ill - Head Exam Head Exam: ATRAUMATIC, NORMOCEPHALIC - Eye Exam Eye Exam: EOMI, Normal appearance, PERRL Pupil Exam: NORMAL ACCOMODATION, PERRL - ENT Exam ENT Exam: Mucous Membranes Moist - Neck Exam Neck Exam: Normal Inspection - Respiratory Exam Respiratory Exam: Decreased Breath Sounds, Rhonchi, NORMAL BREATHING PATTERN - Cardiovascular Exam Cardiovascular Exam: REGULAR RHYTHM, +S1, +S2. absent: Gallop, Rubs, Murmur - GI/Abdominal Exam GI & Abdominal Exam: Soft, Normal Bowel Sounds. 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 * BNP 6080 repeat was 4130 * ECHO on 02/19/16 showed EF of 25-30% dilated left atrium and mitral regurge, and mild dyskinesis of inferior wall. [see full report] * Pulm Dr. Zeng consulted, help appreciated * Cardio Dr. Patel consulted, help appreciated * Duonebs Q6 [facility] and Q2 PRN * Started Azithromycin 500 mg daily * Started Rocephin 1 gm daily * Lasix 20mg IV given in ED * Continue Lasix 40mg BID * Solumedrol 40mg IV Q12H * Spiriva and Advair * monitor symptoms * blood culture negative Electrolyte abnormality * sodium and chloride borderline low * likely due to lasix * gentle rehydration Abdominal pain * Constipation vs withdrawal symptoms * Ct abd shows evidence of pancreatic atrophy, cholelithiasis, fat containing lumbar hernia, no bowel obstruction [see full report] * LFT's wnl * continue colace BID * tylenol for pain * F/U urine culture HTN * resume home Coreg, isosorbide, and zestril * continue to monitor Heroin use disorder * advised on cessation * f/u UDS * Clonidine 0.1 Q8H for withdrawals * Psych Dr. Barron consulted, help appreciated DM * regular accuchecks * f/u A1C PPX * heparin 5000 U SC * Protonix 40mg po daily * zofran 4mg IVP Q6 PRN * SCD's <Sascha Anguiano Jr. - Last Filed: 08/06/16 11:02> Objective - Vital Signs/Intake and Output Vital Signs (last 24 hours): Temp Pulse Resp BP Pulse Ox 98.4 F 60 17 178/102 H 99 08/01/16 07:55 08/01/16 07:55 08/01/16 07:55 08/01/16 10:31 08/01/16 07:55 - Labs Labs: 08/01/16 08:12 08/01/16 08:12 PT 13.1 SECONDS (9.7-12.2) H 07/30/16 19:57 INR 1.2 07/30/16 19:57 APTT 31 SECONDS (21-34) 07/30/16 19:57 Attending/Attestation - Attestation I have personally seen and examined this patient.: Yes I have fully participated in the care of the patient.: Yes I have reviewed all pertinent clinical information, including history, physical exam and plan: Yes Notes (Text): 08/06/16 11:02 Agree with resident note and plan of care
--- NOTE | 2016-08-01 07:06 | CP.PCM.CON ---
History of Present Illness - History of Present Illness History of Present Illness: Pt with ICD ,cardiomyopathy,heroinb abuse presented with sob no cp. her productive cough worsenes with greenish sputum and decided to come in for treatment. Had a recent methadone taper Review of Systems - Review of Systems Systems not reviewed;Unavailable: Acuity of Condition - Constitutional Constitutional: absent: Weakness - EENT Eyes: absent: Blurred Vision Nose/Mouth/Throat: absent: Nasal Discharge - Cardiovascular Cardiovascular: absent: Chest Pain - Respiratory Respiratory: Dyspnea, Change in Mucous Color - Gastrointestinal Gastrointestinal: absent: Abdominal Pain - Genitourinary Genitourinary: absent: Dysuria - Integumentary Integumentary: absent: Bleeding Lesions - Neurological Neurological: absent: Abnormal Movements - Psychiatric Psychiatric: absent: Anxiety - Endocrine Endocrine: Fatigue Past Patient History - Tetanus Immunizations Tetanus Immunization: Up to Date - Past Medical History & Family History Past Medical History?: Yes - Past Social History Smoking Status: Heavy Smoker > 10 Cigarettes Daily - CARDIAC Hx Congestive Heart Failure: Yes Hx Hypertension: Yes - PULMONARY Hx Asthma: Yes Hx Chronic Obstructive Pulmonary Disease (COPD): Yes Hx Pneumonia: Yes - NEUROLOGICAL HX Cerebrovascular Accident: Yes (R sided weakness) - HEENT Hx HEENT Problems: Yes Other/Comment: wears glasses - RENAL Hx Chronic Kidney Disease: No - ENDOCRINE/METABOLIC Hx Diabetes Mellitus Type 2: Yes - HEMATOLOGICAL/ONCOLOGICAL Hx Blood Disorders: Yes Hx Cancer: Yes (Breast and lung) - INTEGUMENTARY Hx Dermatological Problems: No - MUSCULOSKELETAL/RHEUMATOLOGICAL Hx Musculoskeletal Disorders: Yes Hx Falls: Yes - GASTROINTESTINAL Hx Gastrointestinal Disorders: Yes Hx Constipation: Yes - GENITOURINARY/GYNECOLOGICAL Hx Genitourinary Disorders: Yes Hx Incontinence: Yes - PSYCHIATRIC Hx Substance Use: Yes (hx of herion use) - SURGICAL HISTORY Hx Surgeries: Yes Hx Tubal Ligation: Yes Other/Comment: AICD implantation 2016 - ANESTHESIA Hx Anesthesia: Yes Hx Anesthesia Reactions: No Hx Malignant Hyperthermia: No Meds Allergies/Adverse Reactions: Allergies Allergy/AdvReac Type Severity Reaction Status Date / Time No Known Allergies Allergy Verified 07/30/16 19:16 - Medications Medications: Current Medications Acetaminophen (Tylenol 325mg Tab) 650 mg PO Q6 PRN PRN Reason: Pain, moderate (4-7) Last Admin: 08/01/16 00:22 Dose: 650 mg Albuterol (Ventolin Hfa 90 Mcg/Actuation (8 G)) 2 puff IH RQID PRN PRN Reason: Wheezing Albuterol/Ipratropium (Duoneb 3 Mg/0.5 Mg (3 Ml) Ud) 3 ml INH RQ6 [facility] Last Admin: 08/01/16 01:41 Dose: Not Given Albuterol/Ipratropium (Duoneb 3 Mg/0.5 Mg (3 Ml) Ud) 3 ml INH RQ2 PRN PRN Reason: Shortness of Breath Carvedilol (Coreg) 12.5 mg PO BID [facility] Last Admin: 07/31/16 17:20 Dose: 12.5 mg Clonidine HCl (Catapres) 0.1 mg PO Q8H [facility] Last Admin: 08/01/16 03:52 Dose: 0.1 mg Docusate Sodium (Colace) 100 mg PO BID [facility] Last Admin: 07/31/16 17:19 Dose: 100 mg Furosemide (Lasix) 40 mg PO BID [facility] Last Admin: 07/31/16 17:20 Dose: 40 mg Heparin Sodium (Porcine) (Heparin) 5,000 units SC Q8 [facility] Last Admin: 08/01/16 05:53 Dose: Not Given Sodium Chloride (Sodium Chloride 0.9%) 1,000 mls @ 80 mls/hr IV .[id number] [facility] Last Admin: 08/01/16 04:46 Dose: Not Given Azithromycin 500 mg/ Sodium (Chloride) 250 mls @ 250 mls/hr IVPB Q24H [facility] Last Admin: 07/31/16 21:31 Dose: 250 mls/hr Ceftriaxone Sodium 1 gm/ (Sodium Chloride) 100 mls @ 100 mls/hr IVPB Q24H [facility] Last Admin: 07/31/16 21:29 Dose: 100 mls/hr Isosorbide Mononitrate (Imdur) 60 mg PO DAILY [facility] Last Admin: 07/31/16 09:12 Dose: 60 mg Lisinopril (Zestril) 40 mg PO DAILY [facility] Last Admin: 07/31/16 09:11 Dose: 40 mg Methylprednisolone (Solu-Medrol) 40 mg IVP Q12 [facility] Last Admin: 07/31/16 21:30 Dose: 40 mg Ondansetron HCl (Zofran Inj) 4 mg IVP Q6 PRN PRN Reason: Nausea/Vomiting Last Admin: 08/01/16 00:00 Dose: 4 mg Pantoprazole Sodium (Protonix Ec Tab) 40 mg PO DAILY [facility] Last Admin: 07/31/16 09:11 Dose: 40 mg Pneumococcal Polyvalent Vaccine (Pneumovax 23 Vaccine) 0.5 ml IM .ONCE ONE Stop: 08/02/16 10:01 Fluticasone/Salmeterol (Advair Diskus 250/50) 1 puff INH RQ12 [facility] Tiotropium [place] (Spiriva) 18 mcg INH RQ24 [facility] Physical Exam - Constitutional Appears: Older Than Stated Age, Chronically Ill - Head Exam Head Exam: ATRAUMATIC, NORMOCEPHALIC - Eye Exam Eye Exam: Normal appearance - ENT Exam ENT Exam: Mucous Membranes Moist - Respiratory Exam Respiratory Exam: NORMAL BREATHING PATTERN - Cardiovascular Exam Cardiovascular Exam: REGULAR RHYTHM - GI/Abdominal Exam GI & Abdominal Exam: Normal Bowel Sounds - Exam External exam: NORMAL EXTERNAL EXAM - Extremities Exam Extremities exam: Positive for: normal inspection - Neurological Exam Neurological exam: Alert - Psychiatric Exam Psychiatric exam: Depressed - Skin Skin Exam: Intact Results - Vital Signs Recent Vital Signs: Last Vital Signs Temp 98 F 08/01/16 04:50 Pulse 98 H 08/01/16 05:50 Resp 20 07/31/16 23:05 BP 163/98 H 08/01/16 05:50 Pulse Ox 99 07/31/16 23:05 - Labs Result Diagrams: 08/01/16 08:12 08/01/16 08:12 Labs: Laboratory Results - last 24 hr 07/31/16 07/31/16 07:09 07:09 WBC 12.6 H RBC 5.15 Hgb 12.0 Hct 36.9 MCV 71.7 L MCH 23.3 L MCHC 32.4 L RDW 18.3 H Plt Count 208 MPV 8.0 Neut % (Auto) 89.0 H Lymph % (Auto) 10.0 L Benson % (Auto) 0.7 Eos % (Auto) 0.0 Baso % (Auto) 0.3 Neut # 11.2 H Lymph # 1.3 Benson # 0.1 Eos # 0.0 Baso # 0.0 Sodium 131 L Potassium 4.1 Chloride 93 L Carbon Dioxide 28 Anion Gap 14 BUN 17 Creatinine 1.1 Est GFR ( Amer) > 60 Est GFR (Non-Af Amer) 51 Random Glucose 142 H Calcium 8.5 L Total Bilirubin 0.7 AST 18 ALT < 6 L D Alkaline Phosphatase 77 NT-Pro-B Natriuret Pep 4130 H Total Protein 7.5 Albumin 3.5 Globulin 4.0 H Albumin/Globulin Ratio 0.9 L Assessment & Plan (1) HTN (hypertension) Assessment and Plan: continue bp meds follow up icd check in office. Recent check nl Status: Chronic
[2016-08-01] MEDS ORDERED: Tiotropium 18 mcg Cap For Inhalation INH SCH (08:00)
[2016-08-01 08:28] LABS: BASO # 0.1 K/uL (0.0-0.2); BASO % 0.5 % (0.0-2.0); HEMATOCRIT 36.8 % (34.0-47.0); LYMPH # 1.4 K/uL (1.0-4.3); LYMPH % 11.9 % (20.0-40.0); MEAN CELL VOLUME 72.6 fL (81.0-99.0); MEAN CORPUSCULAR HEMOGLOBIN 23.1 pg (27.0-31.0); MEAN CORPUSCULAR HGB CONC 31.7 g/dL (33.0-37.0); MEAN PLATELET VOLUME 8.2 fL (7.2-11.7); MONO # 0.3 K/uL (0.0-0.8); MONO % 2.4 % (0.0-10.0); RED CELL DISTRIBUTION WIDTH 18.1 % (11.5-14.5); WHITE BLOOD COUNT 11.8 K/uL (4.8-10.8)
[2016-08-01 08:40] LABS: CHLORIDE 90 mmol/L (98-107); POTASSIUM 3.7 mmol/L (3.6-5.2); SODIUM 133 mmol/L (132-148)
[2016-08-01 08:42] LABS: GFR AFRICAN-AMERICAN > 60
[2016-08-01 08:43] LABS: ALB/GLOB RATIO 0.9 (1.0-2.1); ALKALINE PHOSPHATASE 82 U/L (38-126); ALT/SGPT 17 U/L (9-52); AST/SGOT 19 U/L (14-36); BILIRUBIN,TOTAL 0.6 mg/dL (0.2-1.3); BLOOD UREA NITROGEN 18 mg/dL (7-17); CARBON DIOXIDE 29 mmol/L (22-30); GLUCOSE,RANDOM 132 mg/dL (65-105); TOTAL PROTEIN 8.5 g/dL (6.3-8.3)
[2016-08-01 08:44] LABS: CALCIUM 8.7 mg/dl (8.6-10.4)
[2016-08-01 09:50] VITALS: BP 178/102; PULSE 60; RESP 17; TEMP 98.4
[2016-08-01] MEDS: MethylPREDNISolone 40 mg Vial IVP SCH (10:31)
[2016-08-01] MEDS: Pantoprazole 40 mg EC Tab PO SCH (10:31)
--- NOTE | 2016-08-01 17:02 | CP.PCM.DIS ---
Provider - Provider Date of Admission: 07/30/16 23:22 Attending physician: Sascha Anguiano Jr, MD Primary care physician: Dr. Anguiano Consults: Dr. Patel, Dr. Barron, Dr. Zeng Time Spent in preparation of Discharge (in minutes): 40 Hospital Course - Lab Results Lab Results: Most Recent Lab Values WBC 11.8 K/uL (4.8-10.8) H 08/01/16 08:12 RBC 5.07 Mil/uL (3.80-5.20) 08/01/16 08:12 Hgb 11.7 g/dL (11.0-16.0) 08/01/16 08:12 Hct 36.8 % (34.0-47.0) 08/01/16 08:12 MCV 72.6 fL (81.0-99.0) L 08/01/16 08:12 MCH 23.1 pg (27.0-31.0) L 08/01/16 08:12 MCHC 31.7 g/dL (33.0-37.0) L 08/01/16 08:12 RDW 18.1 % (11.5-14.5) H 08/01/16 08:12 Plt Count 216 K/uL (130-400) 08/01/16 08:12 MPV 8.2 fL (7.2-11.7) 08/01/16 08:12 Neut % (Auto) 85.2 % (50.0-75.0) H 08/01/16 08:12 Lymph % (Auto) 11.9 % (20.0-40.0) L 08/01/16 08:12 Cand[place] % (Auto) 2.4 % (0.0-10.0) 08/01/16 08:12 Eos % (Auto) 0.0 % (0.0-4.0) 08/01/16 08:12 Baso % (Auto) 0.5 % (0.0-2.0) 08/01/16 08:12 Neut # 10.0 K/uL (1.8-7.0) H 08/01/16 08:12 Lymph # 1.4 K/uL (1.0-4.3) 08/01/16 08:12 Candler # 0.3 K/uL (0.0-0.8) 08/01/16 08:12 Eos # 0.0 K/uL (0.0-0.7) 08/01/16 08:12 Baso # 0.1 K/uL (0.0-0.2) 08/01/16 08:12 PT 13.1 SECONDS (9.7-12.2) H 07/30/16 19:57 INR 1.2 07/30/16 19:57 APTT 31 SECONDS (21-34) 07/30/16 19:57 pO2 43 mm/Hg (30-55) 07/30/16 20:00 VBG pH 7.43 (7.32-7.43) 07/30/16 20:00 VBG pCO2 43 mmHg (40-60) 07/30/16 20:00 VBG HCO3 27.3 mmol/L 07/30/16 20:00 VBG Total CO2 29.8 mmol/L (22-28) H 07/30/16 20:00 VBG O2 Sat (Calc) 82.7 % (40-65) H 07/30/16 20:00 VBG Base Excess 3.7 mmol/L (0.0-2.0) H 07/30/16 20:00 VBG Potassium 3.6 mmol/L (3.6-5.2) 07/30/16 20:00 Sodium 133.0 mmol/l (132-148) 07/30/16 20:00 Chloride 102.0 mmol/L (98-107) 07/30/16 20:00 Glucose 81 mg/dl (65-105) 07/30/16 20:00 Lactate 0.7 mmol/L (0.7-2.1) 07/30/16 20:00 Sodium 133 mmol/L (132-148) 08/01/16 08:12 Potassium 3.7 mmol/L (3.6-5.2) 08/01/16 08:12 Chloride 90 mmol/L (98-107) L 08/01/16 08:12 Carbon Dioxide 29 mmol/L (22-30) 08/01/16 08:12 Anion Gap 18 (10-20) 08/01/16 08:12 BUN 18 mg/dL (7-17) H 08/01/16 08:12 Creatinine 0.9 MG/DL (0.7-1.2) 08/01/16 08:12 Est GFR ( Amer) > 60 08/01/16 08:12 Est GFR (Non-Af Amer) > 60 08/01/16 08:12 Random Glucose 132 mg/dL (65-105) H 08/01/16 08:12 Calcium 8.7 mg/dl (8.6-10.4) 08/01/16 08:12 Total Bilirubin 0.6 mg/dL (0.2-1.3) 08/01/16 08:12 AST 19 U/L (14-36) 08/01/16 08:12 ALT 17 U/L (9-52) 08/01/16 08:12 Alkaline Phosphatase 82 U/L (38-126) 08/01/16 08:12 Troponin I 0.0470 ng/mL (0.00-0.120) 07/30/16 19:57 NT-Pro-B Natriuret Pep 4130 pg/mL (0-900) H 07/31/16 07:09 Total Protein 8.5 g/dL (6.3-8.3) H 08/01/16 08:12 Albumin 4.0 g/dL (3.5-5.0) 08/01/16 08:12 Globulin 4.5 gm/dL (2.2-3.9) H 08/01/16 08:12 Albumin/Globulin Ratio 0.9 (1.0-2.1) L 08/01/16 08:12 Lipase 21 U/L (23-300) L 07/30/16 19:57 Venous Blood Potassium 3.6 mmol/L (3.6-5.2) 07/30/16 20:00 - Hospital Course Hospital Course: Patient is a 56 year old male with PMHx of systolic CHF, HTN, IDDM, CVA presenting to the ED complaining of shortness of breath and productive cough for 2 days. Patient reports that her cough has been worsening, with white/green sputum. Patient denies any fevers, chills, chest pain. She reports she still smokes at home and has no intention of stopping. She also reports using 3 bags of heroin a day which she reportedly snorts. She also reports some abdominal pain and says she is starting to go through withdrawals. She complains of constipation and has not had a bowel movement for 2 weeks. She denies any other complaints. Dr. Zeng, Dr. Patel and Dr. Barron were consulted. Home meds were resumed , as well as breathing treatments. Pt also received Methadone taper. Pt condition improved slightly but decided to leave AMA. After getting clearance from psych, risks of leaving AMA, including respiratory distress, seizure and were discussed with patient. Patient understood these risks and signed paperwork with witness. A dose of Methadone was given to the patient before she leaves, and patient urged to follow up with Dr. Anguiano as soon as possible. Patient verbalized understanding. Discharge Exam - Head Exam Head Exam: ATRAUMATIC, NORMOCEPHALIC Discharge Plan - Follow Up Plan Condition: STABLE Disposition: AGAINST MEDICAL ADVICE Instructions: Dyspnea (GEN)
--- NOTE | 2016-08-02 08:39 | CARD ---
APPROVED REPORT EKG Measurement Heart [id number] <Conclusion> Normal sinus rhythm with sinus arrhythmia Minimal voltage criteria for LVH, may be normal variant ST & T wave abnormality, consider anterolateral ischemia Prolonged QT Abnormal ECG
[2016-08-02] MEDS ORDERED: Pneumococcal 23-Valent Vaccine IM ONE (10:00)
== END 2016-08-01 13:30 | disposition left against medical advice (07) | DRG 541 ==
LOC: C.ER 18:59 → C.6T 21:47 → OBSVTOIN 23:22
PROVIDERS: ADMIT Internal Medicine; ATTEND Internal Medicine
PROC: HZ81ZZZ Medication Management for Substance Abuse Treatment, Methadone Maintenance (ICD-10-PCS; principal; 2016-07-31)
DX: J44.0 Chronic obstructive pulmonary disease with (acute) lower respiratory infection (principal); I50.23 Acute on chronic systolic (congestive) heart failure; F11.23 Opioid dependence with withdrawal; I69.351 Hemiplegia and hemiparesis following cerebral infarction affecting right dominant side; E87.8 Other disorders of electrolyte and fluid balance, not elsewhere classified; I11.0 Hypertensive heart disease with heart failure; E11.9 Type 2 diabetes mellitus without complications; J45.909 Unspecified asthma, uncomplicated; F17.210 Nicotine dependence, cigarettes, uncomplicated; K59.09 Other constipation; Z87.01 Personal history of pneumonia (recurrent); Z79.4 Long term (current) use of insulin; Z91.81 History of falling

== ENCOUNTER 2016-11-30 06:17 | Inpatient (IN) | payer MEDICAID ==
[2016-11-30 06:17] VITALS: PULSE 85; BMI 22.6
[2016-11-30 07:01] LABS: BASO # 0.1 K/uL (0.0-0.2); BASO % 0.9 % (0.0-2.0); EOS % 0.1 % (0.0-4.0); HEMATOCRIT 45.1 % (34.0-47.0); LYMPH # 1.4 K/uL (1.0-4.3); LYMPH % 10.1 % (20.0-40.0); MEAN CELL VOLUME 79.3 fL (81.0-99.0); MEAN CORPUSCULAR HEMOGLOBIN 26.8 pg (27.0-31.0); MEAN CORPUSCULAR HGB CONC 33.8 g/dL (33.0-37.0); MEAN PLATELET VOLUME 8.5 fL (7.2-11.7); MONO # 0.7 K/uL (0.0-0.8); MONO % 4.8 % (0.0-10.0); RED CELL DISTRIBUTION WIDTH 18.6 % (11.5-14.5); WHITE BLOOD COUNT 13.9 K/uL (4.8-10.8)
[2016-11-30 07:12] LABS: CHLORIDE 92 mmol/L (98-107)
[2016-11-30 07:13] LABS: POTASSIUM 3.6 mmol/L (3.6-5.2); SODIUM 132 mmol/L (132-148)
[2016-11-30 07:15] LABS: ALB/GLOB RATIO 1.1 (1.0-2.1); AST/SGOT 21 U/L (14-36); BILIRUBIN,TOTAL 0.8 mg/dL (0.2-1.3); BLOOD UREA NITROGEN 15 mg/dL (7-17); CARBON DIOXIDE 27 mmol/L (22-30); GFR AFRICAN-AMERICAN > 60; TOTAL PROTEIN 8.3 g/dL (6.3-8.3)
[2016-11-30 07:16] LABS: ALKALINE PHOSPHATASE 103 U/L (38-126); ALT/SGPT 20 U/L (9-52); CALCIUM 9.9 mg/dl (8.6-10.4); GLUCOSE,RANDOM 135 mg/dL (65-105)
[2016-11-30] MEDS ORDERED: Albuterol-Ipratrop 3 mg / 0.5 (3 ml) UD INH STA (07:35)
--- NOTE | 2016-11-30 07:36 | C.PDOC ---
History Of Present Illness 56 y/o female, with PMHx of COPD, CHF, HTN, and diabetes, presents to ED for evaluation of increased shortness of breath, productive cough, and congestion for the last couple days. Pt notes that she uses oxygen at home. (+) post tussive vomiting (+) chest pain with cough. According to signifcant other, pt has been using her oxygen more then usual secondary to sob.Otherwise, patient denies lightheadedness, headache, fever, lower extremity pain/swelling, or recent travel. Time Seen by Provider: 11/30/16 07:20 Chief Complaint (Nursing): Chest Pain History Per: Patient History/Exam Limitations: no limitations Onset/Duration Of Symptoms: Days (1) Current Symptoms Are (Timing): Still Present Associated Symptoms: denies: Nausea, Diaphoresis, Syncope Modifying Factors: None Exacerbating Factors: None Alleviating Factors: None Recent travel outside of the [place]: No Additional History Per: Patient Past Medical History Reviewed: Historical Data, Nursing Documentation, Vital Signs Vital Signs: Last Vital Signs Temp 97.7 F 11/30/16 16:29 Pulse 100 H 11/30/16 16:29 Resp 20 11/30/16 16:29 BP 137/93 H 11/30/16 16:29 Pulse Ox 99 11/30/16 17:14 - Medical History PMH: Asthma, CHF, COPD, CVA, HTN, Pneumonia - [facility] Procedures ASSISTANCE WITH RESPIRATORY VENTILATION, 24-96 HRS, CPAP (02/14/16) MEDS MGMT FOR SUBSTANCE ABUSE TREATMENT, METHADONE MAINT (07/30/16) RESPIRATORY VENTILATION, 24-96 CONSECUTIVE HOURS (02/14/16) ULTRASONOGRAPHY OF RIGHT AND LEFT HEART, TRANSESOPHAGEAL (07/28/15) Family History: States: Unknown Family Hx - Social History Hx Tobacco Use: Yes (Heavy smoker) Hx Alcohol Use: No Hx Substance Use: Yes (hx of herion use) - Immunization History Hx Tetanus Toxoid Vaccination: No Hx Influenza Vaccination: No Hx Pneumococcal Vaccination: No Review Of Systems Except As Marked, All Systems Reviewed And Found Negative. Constitutional: Negative for: Fever, Chills ENT: Positive for: Nose Congestion. Negative for: Nose Discharge, Throat Pain Cardiovascular: Negative for: Chest Pain, Palpitations, Edema, Light Headedness Respiratory: Positive for: Cough, Shortness of Breath, Sputum. Negative for: Hemoptysis Gastrointestinal: Negative for: Nausea, Vomiting, Abdominal Pain Neurological: Negative for: Headache, Dizziness Physical Exam - Physical Exam Appears: Non-toxic, Chronically Ill, Other (uncomfortable) Skin: Normal Color, Warm, Dry, No Rash Head: Atraumatic, Normacephalic Eye(s): bilateral: Normal Inspection, EOMI Nose: Normal Oral Mucosa: Moist Neck: Normal ROM, Supple Chest: Symmetrical, No Tenderness, Other (pacemaker over left upper chest wall) Cardiovascular: Rhythm Regular, No Murmur Respiratory: Decreased Breath Sounds, No Accessory Muscle Use, No Rales, Rhonchi , No Wheezing Gastrointestinal/Abdominal: Soft, No Tenderness Back: No CVA Tenderness Extremity: No Pedal Edema, No Other (right side weakness (chronic s/p CVA)) Neurological/Psych: Oriented x3, Normal Speech ED Course And Treatment - Laboratory Results Result Diagrams: 11/30/16 06:58 11/30/16 06:58 ECG: Interpreted By Me (Dr. Lenz), Viewed By Me ECG Rhythm: Sinus Rhythm ECG Interpretation: No Changes From Prior (07/30/16) Rate From EC (bpm) O2 Sat by Pulse Oximetry: 99 (on RA) Pulse Ox Interpretation: Normal - CT Scan/US Angio chest CT Other Rad Studies (CT/US): Read By Radiologist, Radiology Report Reviewed CT/US Interpretation: CTA chest PE protocol. Indication: Shortness of breath. Technique: Contiguous axial images were obtained through the chest with intravenous contrast enhancement. Sagittal and coronal reconstructions were generated and reviewed. This CT exam was performed using 1 or more of the falling dose reduction techniques: Automated exposure control, adjustment of the MAA and/or kV according to patient size, and/or use of iterative reconstruction technique. IV Contrast: 100 mL Visipaque. . Radiation dose ( DLP): 157.77 MGy-cm. Comparison: Chest x-ray performed 11/30/16, CT chest without contrast performed 07/28/15. Findings: Streak artifact obscures limited visualized portions of the inferior thyroid gland. The mediastinal and hilar vascular structures appear within normal limits. Cardiomegaly. Single lead left-sided AICD. No large central or segmental pulmonary embolus evident. Hyperinflation consistent with COPD. Extensive emphysematous changes. Patchy atelectasis or developing infiltrate at the left lung base. No pleural effusion. No pneumothorax. 6 mm pulmonary nodule at the left lung base (series 4, image 72). Limited visualized portions of the upper abdomen appears grossly unremarkable. Extensive degenerative changes. Osseous demineralization. Impression: No large central segmental pulmonary embolus identified. Cardiomegaly. Single lead left-sided AICD. 6 mm pulmonary nodule at the left lung base. Guidelines by the Fleischner society (radiology 2005; 237:395-400) suggests that in patients with low risk for lung cancer, nodules from 5 mm to 6 mm in diameter should have follow-up in approximately 12 months. In patients with high-risk, such as those were smokers, follow-up is recommended in 6 months. Patients with a known malignancy or risk for metastases should receive 3 month follow-up. Left basilar atelectasis. Developing infiltrate cannot be excluded. Correlate clinically. COPD/emphysema. Progress Note: Angio chest CT, blood work, CXR ordered and reviewed. Pt was given Aspirin, Carvedilol, and nebulizer treatment. On re-eval, Patient is resting comfortably with no wheezing, chest pain, or retractions. Oxygen saturation remains stable. Patient is alert and oriented x 3. Patient was advised to follow up with physician in 1-2 days. Disposition - Disposition Disposition: HOSPITALIZED Disposition Time: 13:00 Condition: STABLE - Clinical Impression Clinical Impression: COPD (chronic obstructive pulmonary disease), Congestive heart failure - PA / TOE STRIPPER / Resident Statement MD/DO has reviewed & agrees with the documentation as recorded. - Scribe Statement The provider has reviewed the documentation as recorded by the Rishi Jones All medical record entries made by the Rishi were at my direction and personally dictated by me. I have reviewed the chart and agree that the record accurately reflects my personal performance of the history, physical exam, medical decision making, and the department course for this patient. I have also personally directed, reviewed, and agree with the discharge instructions and disposition.
[2016-11-30] MEDS ORDERED: MethylPREDNISolone 40 mg Vial IVP STA (08:14)
[2016-11-30] MEDS ORDERED: MethylPREDNISolone 40 mg Vial ONE (08:46)
[2016-11-30] MEDS ORDERED: Albuterol-Ipratrop 3 mg / 0.5 (3 ml) UD ONE (08:49)
--- NOTE | 2016-11-30 09:14 | RAD ---
PROCEDURE: CHEST RADIOGRAPH, 1 VIEW HISTORY: Shortness of breath COMPARISON: None available. FINDINGS: LUNGS: Mild venous congestion with mild patchy increased markings at the right lung base. Minimal atelectatic changes in the right midlung zone. PLEURA: No pneumothorax or pleural fluid seen. CARDIOVASCULAR: Left-sided pacemaker. OSSEOUS STRUCTURES: No significant abnormalities. VISUALIZED UPPER ABDOMEN: Normal. OTHER FINDINGS: None. IMPRESSION: Mild venous congestion with mild patchy increased markings at the right lung base. Minimal atelectatic changes in the right midlung zone.
[2016-11-30] MEDS ORDERED: Iodixanol 320 mg/ml 150 ml Bottle IV ONE (10:21)
--- NOTE | 2016-11-30 11:33 | CT ---
CTA chest PE protocol Indication: Shortness of breath Technique: Contiguous axial images were obtained through the chest with intravenous contrast enhancement. Sagittal and coronal reconstructions were generated and reviewed. This CT exam was performed using 1 or more of the falling dose reduction techniques: Automated exposure control, adjustment of the MAA and/or kV according to patient size, and/or use of iterative reconstruction technique. IV Contrast: 100 mL Visipaque Radiation dose (DLP): 157.77 MGy-cm. Comparison: Chest x-ray performed 11/30/16, CT chest without contrast performed 07/28/15 Findings: Streak artifact obscures limited visualized portions of the inferior thyroid gland. The mediastinal and hilar vascular structures appear within normal limits. Cardiomegaly. Single lead left-sided AICD. No large central or segmental pulmonary embolus evident. Hyperinflation consistent with COPD. Extensive emphysematous changes. Patchy atelectasis or developing infiltrate at the left lung base. No pleural effusion. No pneumothorax. 6 mm pulmonary nodule at the left lung base (series 4, image 72). Limited visualized portions of the upper abdomen appears grossly unremarkable. Extensive degenerative changes. Osseous demineralization. Impression: No large central segmental pulmonary embolus identified. Cardiomegaly. Single lead left-sided AICD. 6 mm pulmonary nodule at the left lung base. Guidelines by the Fleischner society (radiology 2005; 237:395-400) suggests that in patients with low risk for lung cancer, nodules from 5 mm to 6 mm in diameter should have follow-up in approximately 12 months. In patients with high-risk, such as those were smokers, follow-up is recommended in 6 months. Patients with a known malignancy or risk for metastases should receive 3 month follow-up. Left basilar atelectasis. Developing infiltrate cannot be excluded. Correlate clinically. COPD/emphysema.
[2016-11-30] MEDS ORDERED: Azithromycin 500 MG in Sodium Chloride 0.9% 250 ML IVPB SCH ×2 (14:30→15:00)
[2016-11-30] MEDS ORDERED: Albuterol HFA 90 mcg/actuation (8 g) IH PRN (14:32)
[2016-11-30] MEDS ORDERED: Sodium Chloride 0.9% 1,000 ML IV SCH (14:45)
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
--- NOTE | 2016-11-30 18:02 | CP.PCM.CON ---
History of Present Illness - History of Present Illness History of Present Illness: Reason for consultation: Shortness of breath 56-year-old female with long history of smoking, COPD, CHF who presented to emergency room with 1 week history of shortness of breath associated with cough productive of greenish phlegm. Also complaining of vomiting for the past 1 day. Denies any chest pain but complaining of fevers chills and diaphoresis. Complaining of weight loss Review of Systems - Review of Systems All systems: reviewed and no additional remarkable complaints except (Shortness of breath and productive cough) Past Patient History - Tetanus Immunizations Tetanus Immunization: Up to Date - Past Medical History & Family History Past Medical History?: Yes - Past Social History Smoking Status: Heavy Smoker > 10 Cigarettes Daily - CARDIAC Hx Congestive Heart Failure: Yes Hx Hypertension: Yes - PULMONARY Hx Asthma: Yes Hx Chronic Obstructive Pulmonary Disease (COPD): Yes Hx Pneumonia: Yes - NEUROLOGICAL HX Cerebrovascular Accident: Yes (R sided weakness) - HEENT Hx HEENT Problems: Yes Other/Comment: wears glasses - RENAL Hx Chronic Kidney Disease: No - ENDOCRINE/METABOLIC Hx Diabetes Mellitus Type 2: Yes - HEMATOLOGICAL/ONCOLOGICAL Hx Blood Disorders: Yes Hx Cancer: Yes (Breast and lung) - INTEGUMENTARY Hx Dermatological Problems: No - MUSCULOSKELETAL/RHEUMATOLOGICAL Hx Musculoskeletal Disorders: Yes Hx Falls: Yes - GASTROINTESTINAL Hx Gastrointestinal Disorders: Yes Hx Constipation: Yes - GENITOURINARY/GYNECOLOGICAL Hx Genitourinary Disorders: Yes Hx Incontinence: Yes - PSYCHIATRIC Hx Substance Use: Yes (hx of herion use) - SURGICAL HISTORY Hx Surgeries: Yes Hx Tubal Ligation: Yes Other/Comment: AICD implantation 2015 - ANESTHESIA Hx Anesthesia: Yes Hx Anesthesia Reactions: No Hx Malignant Hyperthermia: No Meds Allergies/Adverse Reactions: Allergies Allergy/AdvReac Type Severity Reaction Status Date / Time No Known Allergies Allergy Verified 11/30/16 06:25 - Medications Medications: Current Medications Acetaminophen (Tylenol 325mg Tab) 650 mg PO Q6 PRN PRN Reason: Fever >100.4 F Albuterol (Ventolin Hfa 90 Mcg/Actuation (8 G)) 2 puff IH QID PRN PRN Reason: Wheezing Carvedilol (Coreg) 12.5 mg PO BID [facility] Docusate Sodium (Colace) 100 mg PO BID [facility] Famotidine (Pepcid) 20 mg PO BID [facility] Furosemide (Lasix) 40 mg PO BID [facility] Hydralazine HCl (Apresoline) 25 mg PO BID [facility] Ceftriaxone Sodium 1 gm/ (Sodium Chloride) 100 mls @ 100 mls/hr IVPB DAILY@ 1530 [facility] Last Admin: 11/30/16 17:02 Dose: 100 mls/hr Sodium Chloride (Sodium Chloride 0.9%) 1,000 mls @ 50 mls/hr IV .Q20H [facility] Last Admin: 11/30/16 17:01 Dose: 50 mls/hr Azithromycin 500 mg/ Sodium (Chloride) 250 mls @ 250 mls/hr IVPB DAILY@1430 [facility] Isosorbide Mononitrate (Imdur) 60 mg PO DAILY [facility] Last Admin: 11/30/16 15:16 Dose: 60 mg Lisinopril (Zestril) 40 mg PO DAILY [facility] Methylprednisolone (Solu-Medrol) 40 mg IV Q12 [facility] Ondansetron HCl (Zofran Inj) 4 mg IVP Q6 PRN PRN Reason: Nausea/Vomiting Fluticasone/Salmeterol (Advair Diskus 250/50) 1 puff INH RQ12 [facility] Physical Exam - Head Exam Head Exam: ATRAUMATIC, NORMOCEPHALIC - ENT Exam ENT Exam: Mucous Membranes Moist - Neck Exam Neck exam: Positive for: Normal Inspection - Respiratory Exam Respiratory Exam: Decreased Breath Sounds - Cardiovascular Exam Cardiovascular Exam: REGULAR RHYTHM - GI/Abdominal Exam GI & Abdominal Exam: Normal Bowel Sounds, Soft - Extremities Exam Extremities exam: Positive for: normal inspection - Neurological Exam Neurological exam: Alert, Oriented x3 Results - Vital Signs Recent Vital Signs: Last Vital Signs Temp 97.7 F 11/30/16 16:29 Pulse 100 H 11/30/16 16:29 Resp 20 11/30/16 16:29 BP 137/93 H 11/30/16 16:29 Pulse Ox 99 11/30/16 17:18 - Labs Result Diagrams: 11/30/16 06:58 11/30/16 06:58 Labs: Laboratory Results - last 24 hr 11/30/16 11/30/16 11/30/16 06:58 06:58 06:58 WBC 13.9 H RBC 5.68 H Hgb 15.2 D Hct 45.1 MCV 79.3 L D MCH 26.8 L MCHC 33.8 RDW 18.6 H Plt Count 210 MPV 8.5 Neut % (Auto) 84.1 H Lymph % (Auto) 10.1 L Mills % (Auto) 4.8 Eos % (Auto) 0.1 Baso % (Auto) 0.9 Neut # 11.7 H Lymph # 1.4 Mills # 0.7 Eos # 0.0 Baso # 0.1 PT 11.6 INR 1.0 APTT 31 D-Dimer, Quantitative Sodium 132 Potassium 3.6 Chloride 92 L Carbon Dioxide 27 Anion Gap 17 BUN 15 Creatinine 0.7 Est GFR ( Amer) > 60 Est GFR (Non-Af Amer) > 60 Random Glucose 135 H Calcium 9.9 Total Bilirubin 0.8 AST 21 ALT 20 Alkaline Phosphatase 103 Total Creatine Kinase 90 CK-MB (Mass) 0.74 Troponin I 0.0480 NT-Pro-B Natriuret Pep 6710 H Total Protein 8.3 Albumin 4.3 Globulin 3.9 Albumin/Globulin Ratio 1.1 Influenza Typ A,B (EIA) 11/30/16 11/30/16 07:46 14:42 WBC RBC Hgb Hct MCV MCH MCHC RDW Plt Count MPV Neut % (Auto) Lymph % (Auto) Mills % (Auto) Eos % (Auto) Baso % (Auto) Neut # Lymph # Mills # Eos # Baso # PT INR APTT D-Dimer, Quantitative 852 H Sodium Potassium Chloride Carbon Dioxide Anion Gap BUN Creatinine Est GFR ( Amer) Est GFR (Non-Af Amer) Random Glucose Calcium Total Bilirubin AST ALT Alkaline Phosphatase Total Creatine Kinase CK-MB (Mass) Troponin I NT-Pro-B Natriuret Pep Total Protein Albumin Globulin Albumin/Globulin Ratio Influenza Typ A,B (EIA) Negative for flu a/b Assessment & Plan (1) Chr obstructive pulmonary disease w/ acute lower respiratory infxn Status: Acute Comment: CAT scan of the chest showed severe COPD and possible pneumonia. No pulmonary embolism. 6 mm lung nodule. Continue antibiotics. Continue IV steroids and nebulizer treatment. Discontinue Advair (2) Pneumonia Status: Acute
[2016-11-30] MEDS: Albuterol-Ipratrop 3 mg / 0.5 (3 ml) UD INH SCH (19:59)
[2016-11-30] MEDS ORDERED: Fluticasone-Salmeterol 250-50mcg Diskus INH SCH (20:00)
[2016-11-30] MEDS: MethylPREDNISolone 40 mg Vial IV SCH (21:59)
[2016-11-30] MEDS ORDERED: MethylPREDNISolone 40 mg Vial IV SCH (22:00)
[2016-12-01] MEDS: Albuterol-Ipratrop 3 mg / 0.5 (3 ml) UD INH SCH ×2 (01:51→07:31)
[2016-12-01] MEDS: MethylPREDNISolone 40 mg Vial IV SCH (05:41)
[2016-12-01 07:54] VITALS: BP 168/99; RESP 18; TEMP 98; O2SAT 94
[2016-12-01 08:19] LABS: BASO % 0.3 % (0.0-2.0); HEMATOCRIT 41.6 % (34.0-47.0); LYMPH # 1.1 K/uL (1.0-4.3); MEAN CORPUSCULAR HEMOGLOBIN 26.1 pg (27.0-31.0); MEAN CORPUSCULAR HGB CONC 32.7 g/dL (33.0-37.0); MEAN PLATELET VOLUME 8.5 fL (7.2-11.7); MONO # 0.2 K/uL (0.0-0.8); MONO % 1.6 % (0.0-10.0); PLATELET COUNT 238 K/uL (130-400); RED CELL DISTRIBUTION WIDTH 18.7 % (11.5-14.5); WHITE BLOOD COUNT 12.5 K/uL (4.8-10.8)
[2016-12-01 08:28] LABS: BILIRUBIN,TOTAL 0.7 mg/dL (0.2-1.3); TOTAL PROTEIN 7.7 g/dL (6.3-8.3)
[2016-12-01 08:29] LABS: CALCIUM 8.1 mg/dl (8.6-10.4)
[2016-12-01 09:29] LABS: NEUTROPHIL 89 % (50-75); TOTAL CELLS COUNTED 100
--- NOTE | 2016-12-01 09:38 | CP.PCM.PN ---
Subjective - Date & Time of Evaluation Date of Evaluation: 12/01/16 Time of Evaluation: 07:00 - Subjective Subjective: PGY-1, Medicine Note, Dr. Anguiano's Service Patient seen and examined at bedside and in no acute distress. Patient states that her breathing is improving with mild SOB and her cough is decreasing in frequency with treatment. Patient states that her earache is improving as well. Patient complains this morning of pain on right foot in the 5th metatarsal area that has "gone on for a long time". Patient denies fever, chills, nausea, vomiting, headache, chest pain, abdominal pain, diarrhea, and constipation. Objective - Vital Signs/Intake and Output Vital Signs (last 24 hours): Temp Pulse Resp BP Pulse Ox 98.0 F 78 18 168/99 H 94 L 12/01/16 07:25 12/01/16 07:25 12/01/16 07:25 12/01/16 07:25 12/01/16 07:25 Intake and Output: 12/01/16 12/01/16 06:59 18:59 Intake Total 640 Balance 640 - Medications Medications: Current Medications Acetaminophen (Tylenol 325mg Tab) 650 mg PO Q6 PRN PRN Reason: Fever >100.4 F Last Admin: 12/01/16 08:23 Dose: 650 mg Albuterol/Ipratropium (Duoneb 3 Mg/0.5 Mg (3 Ml) Ud) 3 ml INH RQ6 [facility] Last Admin: 12/01/16 07:31 Dose: 3 ml Carvedilol (Coreg) 12.5 mg PO BID [facility] Last Admin: 11/30/16 18:06 Dose: 12.5 mg Docusate Sodium (Colace) 100 mg PO BID [facility] Last Admin: 11/30/16 18:06 Dose: 100 mg Famotidine (Pepcid) 20 mg PO BID [facility] Last Admin: 11/30/16 18:06 Dose: 20 mg Furosemide (Lasix) 40 mg PO BID [facility] Last Admin: 11/30/16 18:06 Dose: 40 mg Hydralazine HCl (Apresoline) 25 mg PO BID [facility] Last Admin: 11/30/16 18:06 Dose: 25 mg Ceftriaxone Sodium 1 gm/ (Sodium Chloride) 100 mls @ 100 mls/hr IVPB DAILY@ 1530 [facility] Last Admin: 11/30/16 17:02 Dose: 100 mls/hr Sodium Chloride (Sodium Chloride 0.9%) 1,000 mls @ 50 mls/hr IV .Q20H [facility] Last Admin: 11/30/16 17:01 Dose: 50 mls/hr Azithromycin 500 mg/ Sodium (Chloride) 250 mls @ 250 mls/hr IVPB DAILY@1430 [facility] Last Admin: 11/30/16 19:05 Dose: 250 mls/hr Isosorbide Mononitrate (Imdur) 60 mg PO DAILY [facility] Last Admin: 11/30/16 15:16 Dose: 60 mg Lisinopril (Zestril) 40 mg PO DAILY [facility] Methylprednisolone (Solu-Medrol) 40 mg IV Q8 [facility] Last Admin: 12/01/16 05:41 Dose: 40 mg Ondansetron HCl (Zofran Inj) 4 mg IVP Q6 PRN PRN Reason: Nausea/Vomiting Pneumococcal Polyvalent Vaccine (Pneumovax 23 Vaccine) 0.5 ml IM .ONCE ONE Stop: 12/02/16 10:01 - Labs Labs: 12/01/16 08:04 12/01/16 08:04 PT 11.6 SECONDS (9.7-12.2) 11/30/16 06:58 INR 1.0 11/30/16 06:58 APTT 31 SECONDS (21-34) 11/30/16 06:58 - Constitutional Appears: Non-toxic, No Acute Distress, Cachectic - Head Exam Head Exam: ATRAUMATIC, NORMAL INSPECTION, NORMOCEPHALIC - Eye Exam Eye Exam: EOMI, Normal appearance - ENT Exam ENT Exam: Mucous Membranes Moist - Neck Exam Neck Exam: Full ROM. absent: Lymphadenopathy, Tenderness - Respiratory Exam Respiratory Exam: Decreased Breath Sounds, Rales, Wheezes, NORMAL BREATHING PATTERN. absent: Rhonchi, Respiratory Distress, Stridor - Cardiovascular Exam Cardiovascular Exam: REGULAR RHYTHM, RRR. absent: Gallop, Rubs - GI/Abdominal Exam GI & Abdominal Exam: Soft, Normal Bowel Sounds - Extremities Exam Extremities Exam: Full ROM. absent: Pedal Edema Additional comments: Phalangeal crowding present on right foot. - Neurological Exam Neurological Exam: Alert, Awake, Oriented x3 - Psychiatric Exam Psychiatric exam: Normal Affect, Normal Mood - Skin Skin Exam: Intact, Normal Color, Warm Assessment and Plan - Assessment and Plan (Free Text) Assessment: Consider PNA * Pulm (Karri), help appreciated * CT: Developing infiltrate at LL base. 6mm Pulm nodule at LL base - F/u with CT in 6 months * CXR: Mild venous congestion with mild patchy increased markings at R. Lung base. * Azithromycin 500mg IV QD * Rocephin 1gm IV QD * Flu negative * 12/01: wbc decreased to 12.5 from 13.9 COPD * Albuterol IH QID PRN * Solumedrol 40mg IV Q12 * Advair Diskus 250/50 Q12 CHF * BNP 6710 * Lasix 40mg PO BID HTN * Coreg 12.5 PO BID * Apresoline 25mg PO BID * Imdur 60mg PO QD * Zestril 40mg PO QD Cachexia * BMI: 13.6 * f/u nutrition consult * Ensure enlive and ensure pudding ordered PPX * Colace 100mg PO BID * Pepcid 20mg BID * SCDs * Zofran 4mg IV Q6 PRN * PT/OT
--- NOTE | 2016-12-01 13:30 | CP.PCM.DIS ---
Provider - Provider Date of Admission: 11/30/16 11:51 Attending physician: Sascha Anguiano Jr, MD Primary care physician: James Bishop MD Consults: Dr. Zeng (pulm) Time Spent in preparation of Discharge (in minutes): 45 Diagnosis - Discharge Diagnosis (1) Pneumonia Status: Acute (2) Congestive heart failure Status: Acute (3) COPD (chronic obstructive pulmonary disease) Status: Chronic (4) HTN (hypertension) Status: Chronic Hospital Course - Lab Results Lab Results: Most Recent Lab Values WBC 12.5 K/uL (4.8-10.8) H 12/01/16 08:04 RBC 5.20 Mil/uL (3.80-5.20) 12/01/16 08:04 Hgb 13.6 g/dL (11.0-16.0) 12/01/16 08:04 Hct 41.6 % (34.0-47.0) 12/01/16 08:04 MCV 80.0 fL (81.0-99.0) L 12/01/16 08:04 MCH 26.1 pg (27.0-31.0) L 12/01/16 08:04 MCHC 32.7 g/dL (33.0-37.0) L 12/01/16 08:04 RDW 18.7 % (11.5-14.5) H 12/01/16 08:04 Plt Count 238 K/uL (130-400) 12/01/16 08:04 MPV 8.5 fL (7.2-11.7) 12/01/16 08:04 Neut % (Auto) 89.1 % (50.0-75.0) H 12/01/16 08:04 Lymph % (Auto) 9.0 % (20.0-40.0) L 12/01/16 08:04 Bonner % (Auto) 1.6 % (0.0-10.0) 12/01/16 08:04 Eos % (Auto) 0.0 % (0.0-4.0) 12/01/16 08:04 Baso % (Auto) 0.3 % (0.0-2.0) 12/01/16 08:04 Neut # 11.1 K/uL (1.8-7.0) H 12/01/16 08:04 Lymph # 1.1 K/uL (1.0-4.3) 12/01/16 08:04 Bonner # 0.2 K/uL (0.0-0.8) 12/01/16 08:04 Eos # 0.0 K/uL (0.0-0.7) 12/01/16 08:04 Baso # 0.0 K/uL (0.0-0.2) 12/01/16 08:04 Neutrophils % (Manual) 89 % (50-75) H 12/01/16 08:04 Lymphocytes % (Manual) 10 % (20-40) L 12/01/16 08:04 Monocytes % (Manual) 1 % (0-10) 12/01/16 08:04 Platelet Estimate Normal (NORMAL) 12/01/16 08:04 Poikilocytosis (manual Slight 12/01/16 08:04 Anisocytosis (manual) Slight 12/01/16 08:04 PT 11.6 SECONDS (9.7-12.2) 11/30/16 06:58 INR 1.0 11/30/16 06:58 APTT 31 SECONDS (21-34) 11/30/16 06:58 D-Dimer, Quantitative 852 ng/mlDDU (0-243) H 11/30/16 07:46 Sodium 132 mmol/L (132-148) 12/01/16 08:04 Potassium 4.0 mmol/L (3.6-5.2) 12/01/16 08:04 Chloride 95 mmol/L (98-107) L 12/01/16 08:04 Carbon Dioxide 27 mmol/L (22-30) 12/01/16 08:04 Anion Gap 14 (10-20) 12/01/16 08:04 BUN 34 mg/dL (7-17) H 12/01/16 08:04 Creatinine 1.2 MG/DL (0.7-1.2) 12/01/16 08:04 Est GFR ( Amer) 56 12/01/16 08:04 Est GFR (Non-Af Amer) 46 12/01/16 08:04 Random Glucose 127 mg/dL (65-105) H 12/01/16 08:04 Calcium 8.1 mg/dl (8.6-10.4) L 12/01/16 08:04 Total Bilirubin 0.7 mg/dL (0.2-1.3) 12/01/16 08:04 AST 22 U/L (14-36) 12/01/16 08:04 ALT 17 U/L (9-52) 12/01/16 08:04 Alkaline Phosphatase 80 U/L (38-126) 12/01/16 08:04 Total Creatine Kinase 90 U/L (30-135) 11/30/16 06:58 CK-MB (Mass) 0.74 ng/mL (0.0-3.38) 11/30/16 06:58 Troponin I 0.0480 ng/mL (0.00-0.120) 11/30/16 06:58 NT-Pro-B Natriuret Pep 6710 pg/mL (0-900) H 11/30/16 06:58 Total Protein 7.7 g/dL (6.3-8.3) 12/01/16 08:04 Albumin 3.9 g/dL (3.5-5.0) 12/01/16 08:04 Globulin 3.8 gm/dL (2.2-3.9) 12/01/16 08:04 Albumin/Globulin Ratio 1.0 (1.0-2.1) 12/01/16 08:04 Influenza Typ A,B (EIA) Negative for flu a/b (NEGATIVE) 11/30/16 14:42 - Hospital Course Hospital Course: "HPI: Patient is a 56 y/o AA female smoker with PMH significant for COPD and CHF who presents to the ER with a CC of throwing up for 1 day, SOB for 1 week, associated with coughing up green sputum and an earache. Cough syrup makes the cough better, nothing makes it worse. States "I cant breathe". Has been constant since onset. Denies any chest pain. Also complaining of eye pain, fevers, shaking, chills, and diaphoresis. She denies any blood in her vomit or sputum. She has not been having any diarrhea or constipation. Denies any sick contacts or recent travel." Hospital Course: Pneumonia: Patient was treated with Azithromycin 500mg IV QD and Rocephhin 1gm IV QD. CT scan was obtained and showed developing infiltrate at LL base and 6mm pulmonary nodule at LL base. To be followed up with CT in 6 months. Chest x-ray showed mild venous congestion with mild patchy increased markings at right lung base. Influenza Type A and B was negative. COPD: Pulmonology (Karri) was consulted 11/30. CAT scan was obtained and showed severe COPD and possible pneumonia, no pulmonary embolism, 6 mm lung nodule. Antibiotics, IV steroids, and nebulizer treatment was continued with albuterol IH QID PRN, Solumedrol 40mg IV Q12, and Advair Diskus 250/50 Q12. Advair was discontinued. CHF: Patient BNP: 5710. Patient was treated with Lasix 40mg PO BID. HTN: Patient treated with Coreg 12.5 PO BID, Apresoline 25mg PO BID, Imdur 60mg PO QD, and Zestril 40mg PO QD. Cachexia: Patient BMI: 13.6. Ensure enlive and ensure pudding was ordered and nutrition was to be consulted for followup. Prophylactic Treatment: Patient treated with Colace 100mg PO BID, Pepcid 20mg BID, Zofran 4mg IV Q6 PRN, and SCDs. Patient left against medical advice. Patient explained risks of leaving including but not limited to:worsening pneumonia which could lead to respiratory distress/failure, sepsis, and . Discharge Exam - Head Exam Head Exam: ATRAUMATIC, NORMAL INSPECTION, NORMOCEPHALIC - Eye Exam Eye Exam: EOMI, Normal appearance - ENT Exam ENT Exam: Mucous Membranes Moist - Neck Exam Neck exam: Full Rom - Respiratory Exam Respiratory Exam: Decreased Breath Sounds, Rales, Wheezes - Cardiovascular Exam Cardiovascular Exam: REGULAR RHYTHM, RRR. absent: Gallop, Rubs, Systolic Murmur - Extremities Exam Extremities exam: full ROM - Neurological Exam Neurological exam: Alert, Oriented x3 - Psychiatric Exam Psychiatric exam: Normal Affect, Normal Mood - Skin Skin Exam: Intact, Normal Color, Warm Discharge Plan - Follow Up Plan Condition: STABLE Disposition: AGAINST MEDICAL ADVICE Referrals: James Bishop MD [Primary Care Provider] -
[2016-12-01 16:34] VITALS: PULSE 83
[2016-12-02] MEDS ORDERED: Pneumococcal 23-Valent Vaccine IM ONE (10:00)
== END 2016-12-01 13:00 | disposition left against medical advice (07) | DRG 541 ==
LOC: C.ER 06:17 → SUPCPDRO 06:17 → C.9E 11:51 → C.6T 14:40
PROVIDERS: ADMIT Internal Medicine; ATTEND Internal Medicine
DX: J44.0 Chronic obstructive pulmonary disease with (acute) lower respiratory infection (principal); J18.9 Pneumonia, unspecified organism; R64 Cachexia; I11.0 Hypertensive heart disease with heart failure; Z99.81 Dependence on supplemental oxygen; I50.9 Heart failure, unspecified; J44.9 Chronic obstructive pulmonary disease, unspecified; I69.951 Hemiplegia and hemiparesis following unspecified cerebrovascular disease affecting right dominant side; E11.9 Type 2 diabetes mellitus without complications; F17.210 Nicotine dependence, cigarettes, uncomplicated; I25.2 Old myocardial infarction; Z95.810 Presence of automatic (implantable) cardiac defibrillator; R91.1 Solitary pulmonary nodule

== ENCOUNTER 2017-01-21 11:18 | Inpatient (IN) | payer MEDICAID ==
[2017-01-21 11:18] VITALS: PULSE 85
[2017-01-21 11:35] VITALS: BMI 21.4
[2017-01-21 12:28] LABS: BASO # 0.1 K/uL (0.0-0.2); BASO % 1.3 % (0.0-2.0); EOS # 0.1 K/uL (0.0-0.7); EOS % 1.2 % (0.0-4.0); HEMATOCRIT 42.7 % (34.0-47.0); LYMPH # 1.4 K/uL (1.0-4.3); LYMPH % 25.8 % (20.0-40.0); MEAN CELL VOLUME 80.8 fL (81.0-99.0); MEAN CORPUSCULAR HEMOGLOBIN 26.6 pg (27.0-31.0); MEAN CORPUSCULAR HGB CONC 32.9 g/dL (33.0-37.0); MEAN PLATELET VOLUME 8.1 fL (7.2-11.7); MONO # 0.4 K/uL (0.0-0.8); MONO % 7.8 % (0.0-10.0); NRBC % 0.1 % (0.0-2.0); RED CELL DISTRIBUTION WIDTH 17.5 % (11.5-14.5); WHITE BLOOD COUNT 5.6 K/uL (4.8-10.8)
[2017-01-21 12:34] LABS: CHLORIDE 100 mmol/L (98-107); SODIUM 132 mmol/L (132-148)
[2017-01-21 12:35] LABS: POTASSIUM 3.7 mmol/L (3.6-5.2)
[2017-01-21 12:37] LABS: ALB/GLOB RATIO 0.9 (1.0-2.1); ALKALINE PHOSPHATASE 89 U/L (38-126); ALT/SGPT 34 U/L (9-52); AST/SGOT 21 U/L (14-36); BILIRUBIN,TOTAL 0.3 mg/dL (0.2-1.3); BLOOD UREA NITROGEN 10 mg/dL (7-17); CALCIUM 8.8 mg/dl (8.6-10.4); CARBON DIOXIDE 25 mmol/L (22-30); GFR AFRICAN-AMERICAN > 60; GLUCOSE,RANDOM 57 mg/dL (65-105)
[2017-01-21 12:38] LABS: ALCOHOL SERUM < 10 mg/dl (0-10)
--- NOTE | 2017-01-21 14:01 | C.PDOC ---
History Of Present Illness 57 y/o female presents to emergency department for detox from heroin. Patient was prescreened prior to arrival. Patient notes last use was today. Also, patient notes she has not been compliant with medications. Denies any acute complaints at this time. No si/hi. Time Seen by Provider: 01/21/17 11:35 Chief Complaint (Nursing): Substance Abuse History Per: Patient History/Exam Limitations: no limitations Current Symptoms Are (Timing): Still Present Modifying Factor(s): Narcotics Associated Symptoms: denies: Suicidal Thoughts, Suicidal Plan Recent travel outside of the [place]: No Past Medical History Reviewed: Historical Data, Nursing Documentation, Vital Signs Vital Signs: Last Vital Signs Temp 97.9 F 01/21/17 11:40 Pulse 79 01/21/17 16:26 Resp 18 01/21/17 16:26 BP 145/103 H 01/21/17 16:26 Pulse Ox 96 01/21/17 16:26 - Medical History PMH: Asthma, CHF, COPD, CVA, HTN, Pneumonia, Seizures (Secondary to alcohol withdrawal.) - CardLab Procedures ASSISTANCE WITH RESPIRATORY VENTILATION, 24-96 HRS, CPAP (02/14/16) MEDS MGMT FOR SUBSTANCE ABUSE TREATMENT, METHADONE MAINT (07/30/16) RESPIRATORY VENTILATION, 24-96 CONSECUTIVE HOURS (02/14/16) ULTRASONOGRAPHY OF RIGHT AND LEFT HEART, TRANSESOPHAGEAL (07/28/15) Family History: States: Unknown Family Hx - Social History Hx Tobacco Use: Yes (Heavy smoker) Hx Alcohol Use: No Hx Substance Use: Yes (hx of herion use) - Immunization History Hx Tetanus Toxoid Vaccination: No Hx Influenza Vaccination: No Hx Pneumococcal Vaccination: No Review Of Systems Except As Marked, All Systems Reviewed And Found Negative. Constitutional: Negative for: Fever, Chills Cardiovascular: Negative for: Chest Pain Respiratory: Negative for: Cough, Shortness of Breath Gastrointestinal: Negative for: Vomiting Skin: Negative for: Rash Psych: Negative for: Withdrawal Physical Exam - Physical Exam Appears: Non-toxic, No Acute Distress, Other (somnolent; arousable, awake, cooperative) Skin: Normal Color, Warm, Dry Head: Atraumatic, Normacephalic Oral Mucosa: Moist Chest: Symmetrical Cardiovascular: Rhythm Regular Respiratory: Normal Breath Sounds, No Rales, No Rhonchi, No Wheezing Gastrointestinal/Abdominal: Normal Exam, Soft, No Tenderness Back: Normal Inspection Extremity: Normal ROM, Capillary Refill (< 2 sec.) Neurological/Psych: Oriented x3, Normal Speech, Normal Cognition ED Course And Treatment - Laboratory Results Result Diagrams: 01/21/17 12:20 01/21/17 12:20 Lab Interpretation: No Acute Changes ECG: Interpreted By Me, Viewed By Me ECG Rhythm: Sinus Rhythm ECG Interpretation: No Changes From Prior (11/27/16) Interpretation Of ECG: NS at 78 bpm with LAD and and minimal criteria for LVH O2 Sat by Pulse Oximetry: 96 (RA) Pulse Ox Interpretation: Normal Medical Decision Making Medical Decision Making: Plan: Labs, UDS, crisis eval. Progress: Labs reviewed with no acute findings. Glucose is controlled. Normal H/H. No electrolyte abnormality. UDS positive for opiate. BP is elevate, patient has been non-compliant with her meds. Will order her PO meds. EKG ordered and reviewed with no acute finding. Other than BP elevation, patient is asymptomatic and is stable. In my clinical judgment patient is medically cleared and stable for psychiatric admission. She will benefit from medical consult and to continue her hypertensive medications Disposition - Disposition Disposition: HOSPITALIZED Disposition Time: 16:44 Condition: STABLE - POA Present On Arrival: None - Clinical Impression Clinical Impression: HTN (hypertension), Opiate abuse, continuous - PA / FACILITIES MAINTENANCE SUPERVISOR / Resident Statement MD/DO has reviewed & agrees with the documentation as recorded. - Scribe Statement The provider has reviewed the documentation as recorded by the Scribromy Leos All medical record entries made by the Scribe were at my direction and personally dictated by me. I have reviewed the chart and agree that the record accurately reflects my personal performance of the history, physical exam, medical decision making, and the department course for this patient. I have also personally directed, reviewed, and agree with the discharge instructions and disposition. Decision To Admit - Pt Status Changed To: Hospital Disposition Of: Inpatient - Admit Certification Admit to Inpatient:: After my assessment, the patient will require hospitalization for at least two midnights. This is because of the severity of symptoms shown, intensity of services needed, and/or the medical risk in this patient being treated as an outpatient. - InPatient: Physician Admission Certification: I certify that this patient requires 2 or more midnights of care for the following reason:: Patient for detox admission of opiate use disorder. Patient has chronic HTN and had been noncompliant with meds, her med list acquired and given. Patient is asymptomatic. - . Bed Request Type: Detox Admitting Physician: Claudio Lomeli Patient Diagnosis: HTN (hypertension), Opiate abuse, continuous
[2017-01-21 14:07] LABS: RBC URINE 1 /hpf (0-3); URINE BILIRUBIN NEGATIVE (NEGATIVE); URINE BLOOD NEGATIVE (NEGATIVE); URINE COLOR Yellow (YELLOW); URINE GLUCOSE (UA) NORMAL (Normal); URINE KETONE NEGATIVE (NEGATIVE); URINE LEUKOCYTE ESTERASE NEG Leu/uL (Negative); URINE PROTEIN 2+ mg/dL (NEGATIVE); URINE UROBILINOGEN NORMAL mg/dL (0.2-1.0); WBC URINE < 1 /hpf (0-5)
[2017-01-21] MEDS ORDERED: Nitroglycerin 2% Ointment Foilpak UD TOP STA (16:21)
[2017-01-21] MEDS ORDERED: Nitroglycerin 2% Ointment Foilpak UD TOP ONE (16:24)
[2017-01-21] MEDS ORDERED: Albuterol HFA 90 mcg/actuation (8 g) IH PRN (19:13)
[2017-01-21] MEDS ORDERED: Aluminum Hydroxide/Magnesium Hydroxide Susp (30 mL) PO PRN (19:13)
[2017-01-21] MEDS ORDERED: Pneumococcal 23-Valent Vaccine IM ONE (19:25)
--- NOTE | 2017-01-21 20:24 | PCM.BM ---
<Tj Ley - Last Filed: 01/21/17 20:21> Treatment Plan Problems - Problems identified on initial assessmt Opiates Abuse Date Initiated: 01/21/17 Time Initiated: 20:23 Treatment assets and liabiliti Patient Liabilities: physical pain, poor support system, substance abuse - Milieu Protocol Maintain good personal hygiene: daily Encourage regular showers, daily Remind patient to perform daily oral care, daily Assist patient to perform ADL's Conduct patient checks and document Observation sheet: Q15 minutes Maintain personal safety: every shift Educate patient to report safety concerns to staff, every shift Monitor environment for contraband/sharps Medication safety: Monitor for expected outcome, potential side effects: every shift, Assess barriers to learning: every shift, Assess readiness for medication education: every shift <Claudio Lomeli - Last Filed: 01/22/17 10:06> - Diagnosis (1) Opioid use disorder, severe, dependence Status: Acute Interventions: 01/22/17 10:06 * Assess 7x/week regarding severity of withdrawal * Educate regarding risks, benefits, side effects and alternatives of medications * Use Motivational Interviewing for abstinence * Use CBT for relapse prevention * Medication management for withdrawal symptoms * Encourage medication assisted treatment *
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
--- NOTE | 2017-01-22 06:46 | CP.PCM.PN ---
Subjective - Date & Time of Evaluation Date of Evaluation: 01/22/17 Time of Evaluation: 03:55 - Subjective Subjective: A code star was called on this patient at 3:55AM. I arrived to her room at 3: 56AM. She was by that point sitting in her wheelchair surrounded by 3 detox nurses/staff. Nobody had witnessed the fall. The patient said she was trying to go to the bathroom, but instead of hitting the call richey, she attempted to go to the bathroom herself. She slipped as she was getting out of bed. The patient' s neighbor alerted the nurse. The patient stated she fell on her right buttock and thigh (her right leg is weaker due to a CVA 2 years ago). There was urine on the ground where she fell. There was a wet stain on her right thigh ( presumably urine). She stated that she did not hit her head. I asked her to point to where she fell and she pointed to her right thigh. I inspected the thigh and there was no bruise. There were no lesions found anywhere, including her head. She was tachycardic at 103, presumably from withdrawals as she was tachycardic prior to the fall as well. A CT head was not warranted. Objective - Vital Signs/Intake and Output Vital Signs (last 24 hours): Temp Pulse Resp BP Pulse Ox 98.4 F 97 H 16 126/84 96 01/22/17 05:43 01/22/17 05:43 01/22/17 05:43 01/22/17 05:43 01/22/17 05:43 - Medications Medications: Current Medications Acetaminophen (Tylenol 325mg Tab) 650 mg PO Q6 PRN PRN Reason: Pain, moderate (4-7) Last Admin: 01/22/17 00:15 Dose: 650 mg Al Hydrox/Mg Hydrox/Simethicone (Maalox 30 Ml) 30 ml PO TID PRN PRN Reason: Indigestion / Heartburn Albuterol (Ventolin Hfa 90 Mcg/Actuation (8 G)) 2 puff IH RQID PRN PRN Reason: Wheezing Aspirin (Aspirin Chewable) 81 mg PO DAILY [facility] Carvedilol (Coreg) 12.5 mg PO BID [facility] Clonidine HCl (Catapres) 0.1 mg PO Q8 PRN PRN Reason: COWS Score More or Equal to 5 Furosemide (Lasix) 40 mg PO BID [facility] Home Med (Mometasone/Formoterol [Dulera 200 Mcg/5 Mcg Inhaler]) 2 puff IH BID [facility] Hydralazine HCl (Apresoline) 25 mg PO BID [facility] Hydroxyzine HCl (Atarax) 25 mg PO Q6H PRN PRN Reason: Anxiety Last Admin: 01/22/17 00:15 Dose: 25 mg Isosorbide Mononitrate (Imdur) 60 mg PO DAILY [facility] Levetiracetam (Keppra) 500 mg PO BID [facility] Last Admin: 01/21/17 20:28 Dose: 500 mg Lisinopril (Zestril) 40 mg PO DAILY [facility] Loperamide HCl (Imodium) 2 mg PO Q8 PRN PRN Reason: Diarrhea Lorazepam (Ativan) 1 mg PO Q6H PRN PRN Reason: Alcohol Withdrawal Last Admin: 01/22/17 01:41 Dose: 1 mg Ondansetron HCl (Zofran Tab) 4 mg PO Q8 PRN PRN Reason: Nausea/Vomiting Pantoprazole Sodium (Protonix Ec Tab) 40 mg PO DAILY [facility] Pneumococcal Polyvalent Vaccine (Pneumovax 23 Vaccine) 0.5 ml IM .ONCE ONE Stop: 01/23/17 10:01 Trazodone HCl (Desyrel) 50 mg PO HS PRN PRN Reason: Insomnia Last Admin: 01/22/17 00:15 Dose: 50 mg - Labs Labs: 01/21/17 12:20 01/21/17 12:20 Assessment and Plan (1) Opiate withdrawal Status: Acute (2) Seizures Status: Acute (3) HTN (hypertension) Status: Chronic (4) CAD (coronary artery disease) Status: Acute (5) Chronic congestive heart failure Status: Acute (6) COPD (chronic obstructive pulmonary disease) Status: Chronic (7) Prophylactic measure Status: Acute
[2017-01-22] MEDS: Pantoprazole 40 mg EC Tab PO SCH (10:23)
--- NOTE | 2017-01-22 10:27 | PCM.PSYCH ---
Initial Psychiatric Evaluation - Initial Psychiatric Evaluation Type of Admission: Voluntary Legal Status: Capacity Chief Complaint (in patient's own words): I came here to get help. History of Present Illness and Precipitating Events: Patient is a 57 years old AAF, who lives with her and currently unemployed, came to the to get help in opioid and alcohol detox. Pt reports h/o abusing cathy and drinking daily. As per the pt, she sniffed heroin 3 bags of heroin yesterday. Pt reports of abusing one bundle of heroin daily and reports h/o drinking almost 3-6 12 ounce cans daily. The last time was yesterday. Pt denies any h/o any inpatient psychiatric hospitalizations and denies any h/o follow u with any psychiatrist. Pt is very weak and fragile. Pt reports withdrawal symptoms including, sweating, anxiety, nausea and abdominal cramps. Patient reports poor sleep but denies any manic symptoms. She denies any auditory or visual hallucinations or any psychotic symptoms. She denies any SI/ HI. Note: Staff reports that code star was called as pt was found on the floor last night. As a result pt was put on 1:1. Past medical history Pt reports that she had a stroke 2 years ago, as a result she has right sided paralysis in the leg. She reports h/o hypertension, congestive heart failure, seizure and COPD. Current Medications: Active Medications Generic Name Dose Route Start Last Admin Trade Name Freq PRN Reason Stop Dose Admin Acetaminophen 650 mg 01/22/17 00:04 01/22/17 00:15 Tylenol 325mg Tab PO 650 mg Q6 PRN Administration Pain, moderate (4-7) Al Hydrox/Mg Hydrox/Simethicone 30 ml 01/21/17 19:13 Maalox 30 Ml PO TID PRN Indigestion / Heartburn Albuterol 2 puff 01/21/17 19:13 Ventolin Hfa 90 Mcg/Actuation (8 G) IH RQID PRN Wheezing Aspirin 81 mg 01/22/17 10:00 Aspirin Chewable PO DAILY [facility] Carvedilol 12.5 mg 01/22/17 10:00 Coreg PO BID [facility] Clonidine HCl 0.1 mg 01/21/17 19:13 Catapres PO Q8 PRN COWS Score More or Equal to 5 Furosemide 40 mg 01/22/17 10:00 Lasix PO BID [facility] Home Med 2 puff 01/22/17 10:00 Mometasone/Formoterol [Dulera 200 Mcg/5 Mcg Inhaler] IH BID [facility] Hydralazine HCl 25 mg 01/22/17 10:00 Apresoline PO BID [facility] Hydroxyzine HCl 25 mg 01/22/17 00:05 01/22/17 00:15 Atarax PO 25 mg Q6H PRN Administration Anxiety Isosorbide Mononitrate 60 mg 01/22/17 10:00 Imdur PO DAILY [facility] Levetiracetam 500 mg 01/21/17 20:15 01/21/17 20:28 Keppra PO 500 mg BID [facility] Administration Lisinopril 40 mg 01/22/17 10:00 Zestril PO DAILY [facility] Loperamide HCl 2 mg 01/21/17 19:13 Imodium PO Q8 PRN Diarrhea Lorazepam 1 mg 01/22/17 01:16 01/22/17 01:41 Ativan PO 1 mg Q6H PRN Administration Alcohol Withdrawal Ondansetron HCl 4 mg 01/21/17 19:13 Zofran Tab PO Q8 PRN Nausea/Vomiting Pantoprazole Sodium 40 mg 01/22/17 10:00 Protonix Ec Tab PO DAILY [facility] Pneumococcal Polyvalent Vaccine 0.5 ml 01/23/17 10:00 Pneumovax 23 Vaccine IM 01/23/17 10:01 .ONCE ONE Trazodone HCl 50 mg 01/22/17 00:06 01/22/17 00:15 Desyrel PO 50 mg HS PRN Administration Insomnia Past Psychiatric History - Past Psychiatric History Previous Treatment History: None Pertinent Medical Hx (Current Medical&Sleep Prob, Allergies): Allergies Allergy/AdvReac Type Severity Reaction Status Date / Time No Known Allergies Allergy Verified 01/21/17 11:34 Mometasone/Formoterol [Dulera 200 Mcg/5 Mcg Inhaler] 2 puff IH BID 07/28/15 Albuterol HFA [Ventolin HFA 90 mcg/actuation (8 g)] 2 puff IH QID PRN #1 inhaler 04/19/16 Carvedilol [Coreg] 12.5 mg PO BID #60 tab 04/19/16 Furosemide [Lasix] 40 mg PO BID #60 tab 04/19/16 Isosorbide Mononitrate [Imdur] 60 mg PO DAILY 07/30/16 Lisinopril [Zestril] 40 mg PO DAILY 07/30/16 hydrALAZINE [Apresoline] 25 mg PO BID 07/30/16 Review of Systems - Review of Systems All systems: reviewed and no additional remarkable complaints except - Psychiatric Psychiatric: Anxiety, Irritability. absent: Suicidal Ideation Mental Status Examination - Personal Presentation Personal Presentation: Looks stated age - Affect Affect: Constricted - Motor Activity Motor Activity: Psychomotor Retardation - Reliability in Providing Information Reliability in Providing Information: Poor, due to altered mood - Speech Speech: Organized - Mood Mood: Anxious - Formal Thought Process Formal Thought Process: No Impairment - Obsessions/Compulsions Obsessions: No Compulsions: No - Cognitive Functions Orientation: Person, Place, Situation, Time Sensorium: Lethargic Attention/Concentration: Easily distracted Abstract Thinking: [place] Estimate of Intelligence: Below average Judgement: Imparied, as evidence by: Poor judgement, Intact, as evidence by: Insight regarding need for hospitalization - Risk Risk: Withdrawal, Diminished functioning - Strength & Assets Inventory Strength & Assets Inventory: Family support DSM 5 DX - DSM 5 DSM 5 Diagnosis: Alcohol use disorder severe Alcohol withdrawal Opioid use disorder severe Opioid withdrawal - Recommended/Plan of Treatment Treatment Recommendations and Plan of Treatment: Alcohol use disorder severe CBT Psychoeducation Supportive therapy, individual therapy Use [place] for abstinence Alcohol withdrawal CBT Psychoeducation Supportive therapy, individual therapy Ativan prn Opioid use disorder severe CBT Psychoeducation Supportive therapy, individual therapy Use [place] for abstinence Opioid withdrawal CBT Psychoeducation Supportive therapy, individual therapy Clonidine when necessary Subutax taper according to COWS scale Hypertension, Continue prescribed medications Monitor s/s h/o CVA Stroke Continue prescribed medications Monitor s/s Congestive heart failure Continue prescribed medications Monitor s/s Sseizure Continue prescribed medications Monitor s/s COPD Continue prescribed medications Monitor s/s - Smoking Cessation Smoking Cessation Initiated: No
--- NOTE | 2017-01-22 14:17 | CP.PCM.PN ---
Subjective - Date & Time of Evaluation Date of Evaluation: 01/22/17 Time of Evaluation: 14:00 - Subjective Subjective: Progress note. Attending: Dr. Vincent Pt seen and examined at bedside. No acute distress. Pt had code star called this morning. No fevers, chills, vomiting, diarrhea. Pt is barely communicative. Objective - Vital Signs/Intake and Output Vital Signs (last 24 hours): Temp Pulse Resp BP Pulse Ox 97.7 F 75 18 128/86 95 01/22/17 13:51 01/22/17 13:51 01/22/17 13:51 01/22/17 13:51 01/22/17 13:51 - Medications Medications: Current Medications Acetaminophen (Tylenol 325mg Tab) 650 mg PO Q6 PRN PRN Reason: Pain, moderate (4-7) Last Admin: 01/22/17 00:15 Dose: 650 mg Al Hydrox/Mg Hydrox/Simethicone (Maalox 30 Ml) 30 ml PO TID PRN PRN Reason: Indigestion / Heartburn Albuterol (Ventolin Hfa 90 Mcg/Actuation (8 G)) 2 puff IH RQID PRN PRN Reason: Wheezing Aspirin (Aspirin Chewable) 81 mg PO DAILY [facility] Last Admin: 01/22/17 10:23 Dose: 81 mg Carvedilol (Coreg) 12.5 mg PO BID [facility] Last Admin: 01/22/17 10:24 Dose: 12.5 mg Clonidine HCl (Catapres) 0.1 mg PO Q8 PRN PRN Reason: COWS Score More or Equal to 5 Furosemide (Lasix) 40 mg PO BID [facility] Last Admin: 01/22/17 10:25 Dose: 40 mg Home Med (Mometasone/Formoterol [Dulera 200 Mcg/5 Mcg Inhaler]) 2 puff IH BID [facility] Hydralazine HCl (Apresoline) 25 mg PO BID [facility] Last Admin: 01/22/17 10:23 Dose: 25 mg Hydroxyzine HCl (Atarax) 25 mg PO Q6H PRN PRN Reason: Anxiety Last Admin: 01/22/17 00:15 Dose: 25 mg Isosorbide Mononitrate (Imdur) 60 mg PO DAILY [facility] Last Admin: 01/22/17 10:25 Dose: 60 mg Levetiracetam (Keppra) 500 mg PO BID [facility] Last Admin: 01/22/17 10:25 Dose: 500 mg Lisinopril (Zestril) 40 mg PO DAILY [facility] Last Admin: 01/22/17 10:26 Dose: 40 mg Loperamide HCl (Imodium) 2 mg PO Q8 PRN PRN Reason: Diarrhea Lorazepam (Ativan) 1 mg PO Q6H PRN PRN Reason: Alcohol Withdrawal Last Admin: 01/22/17 01:41 Dose: 1 mg Ondansetron HCl (Zofran Tab) 4 mg PO Q8 PRN PRN Reason: Nausea/Vomiting Pantoprazole Sodium (Protonix Ec Tab) 40 mg PO DAILY [facility] Last Admin: 01/22/17 10:23 Dose: 40 mg Pneumococcal Polyvalent Vaccine (Pneumovax 23 Vaccine) 0.5 ml IM .ONCE ONE Stop: 01/23/17 10:01 Trazodone HCl (Desyrel) 50 mg PO HS PRN PRN Reason: Insomnia Last Admin: 01/22/17 00:15 Dose: 50 mg - Labs Labs: 01/21/17 12:20 01/21/17 12:20 - Constitutional Appears: Non-toxic, No Acute Distress, Cachectic, Chronically Ill - Head Exam Head Exam: ATRAUMATIC, NORMAL INSPECTION, NORMOCEPHALIC - Eye Exam Eye Exam: EOMI - ENT Exam ENT Exam: Mucous Membranes Moist - Neck Exam Neck Exam: Full ROM, Normal Inspection - Respiratory Exam Respiratory Exam: Decreased Breath Sounds. absent: Respiratory Distress - Cardiovascular Exam Cardiovascular Exam: +S1, +S2 - GI/Abdominal Exam GI & Abdominal Exam: Soft, Normal Bowel Sounds. absent: Tenderness - Extremities Exam Extremities Exam: Full ROM, Normal Inspection - Neurological Exam Neurological Exam: Awake, CN II-XII Intact - Psychiatric Exam Psychiatric exam: Flat Affect - Skin Skin Exam: Dry, Intact, Normal Color, Warm Assessment and Plan - Assessment and Plan (Free Text) Assessment: This is a 57 yo female with long hx of drug abuse presenting with 1. Opiate withdrawal -pt admitted to detox unit -psych consult. Dr. Martinez. kalpana appreciated -medical consult was placed for ongoing chronic medical issues -continue tylenol. -ativan 1 IV q 6 -zofran prn for nausea 2. Hx of seizures -no seizures overnight -keppra -will get keppra level 3. hx of HTN -continue clonidine .1 PO q 8 prn -hydralazine bid -lisinopril daily 4. hx of CAD -asa 81 daily -coreg BID -imdur daily -lisinopril daily 5. hx of CHF -lasix 40 PO BID -previous echo from 02/2016 shows EF of 25-30 percent, mitral regurgitation moderate -may need repeat echo 6. hx of COPD -continue duonebs -o2 by nasal cannula 7. GI/DVT ppx -maalox TID PRN -protonix daily discussed with Dr. Vincent.
[2017-01-23 08:10] LABS: BASO # 0.1 K/uL (0.0-0.2); BASO % 0.9 % (0.0-2.0); EOS # 0.1 K/uL (0.0-0.7); EOS % 1.1 % (0.0-4.0); HEMATOCRIT 42.9 % (34.0-47.0); LYMPH # 1.4 K/uL (1.0-4.3); LYMPH % 25.4 % (20.0-40.0); MEAN CELL VOLUME 80.9 fL (81.0-99.0); MEAN CORPUSCULAR HEMOGLOBIN 26.7 pg (27.0-31.0); MEAN PLATELET VOLUME 8.4 fL (7.2-11.7); MONO # 0.4 K/uL (0.0-0.8); MONO % 6.2 % (0.0-10.0); NRBC % 0.1 % (0.0-2.0); RED CELL DISTRIBUTION WIDTH 16.9 % (11.5-14.5); WHITE BLOOD COUNT 5.7 K/uL (4.8-10.8)
[2017-01-23 08:48] LABS: CHLORIDE 92 mmol/L (98-107); SODIUM 132 mmol/L (132-148)
[2017-01-23 08:49] LABS: POTASSIUM 3.3 mmol/L (3.6-5.2)
[2017-01-23 08:50] LABS: GFR AFRICAN-AMERICAN > 60
[2017-01-23 08:51] LABS: ALB/GLOB RATIO 1.1 (1.0-2.1); ALKALINE PHOSPHATASE 92 U/L (38-126); ALT/SGPT 29 U/L (9-52); AST/SGOT 21 U/L (14-36); BILIRUBIN,TOTAL 0.7 mg/dL (0.2-1.3); BLOOD UREA NITROGEN 15 mg/dL (7-17); CARBON DIOXIDE 32 mmol/L (22-30); GLUCOSE,RANDOM 105 mg/dL (65-105); PHOSPHOROUS 3.5 mg/dL (2.5-4.5); TOTAL PROTEIN 7.6 g/dL (6.3-8.3)
[2017-01-23 08:52] LABS: CALCIUM 8.8 mg/dl (8.6-10.4); MAGNESIUM 1.3 mg/dL (1.6-2.3)
[2017-01-23] MEDS: Pantoprazole 40 mg EC Tab PO SCH (09:37)
[2017-01-23] MEDS ORDERED: Pneumococcal 23-Valent Vaccine IM ONE (10:00)
--- NOTE | 2017-01-23 10:56 | PCM.PYCHPN ---
Psychiatric Progress Note - Psychiatric Progress Note Patient seen today, length of contact: 15 min Patient Chief Complaint: I am feeling little better.' Problems Identified/Issues Discussed: Patient seen and evaluated, chart reviewed and discussed with the nurse. The patient reports improvement in her mood but She remained weak, anxious and confined to her bed. she reports withdrawal symptoms including anxiety and body pains. As per the nurse blood pressure remained high and she is on 3 different blood pressure medications. patient was seen by the medical team. Patient reports some anxiety but denies any suicidal ideation or homicidal ideation. Patient is taking medications and denies any side effects. Supportive therapy and psychoeducation were given. Medication Change: No Medical Record Reviewed: Yes Mental Status Examination - Cognitive Function Orientation: Person, Place, Situation, Time Memory: Intact Attention: Poor Concentration: Poor Association: WNL Fund of Knowledge: Poor - Mood Mood: Anxious - Affect Affect: Constricted - Speech Speech: Soft - Formal Thought Process Formal Thought Process: No Impairment - Suicidal Ideation Suicidal Ideation: No - Homicidal Ideation Homicidal Ideation: No Goal/Treatment Plan - Goal/Treatment Plan Need for Continued Stay: Discharge may exacerbated symptoms Progress Toward Problem(s) and Goals/Treatment Plan: Alcohol use disorder severe CBT Psychoeducation Supportive therapy, individual therapy Use NE for abstinence Alcohol withdrawal CBT Psychoeducation Supportive therapy, individual therapy Ativan prn Opioid use disorder severe CBT Psychoeducation Supportive therapy, individual therapy Use NE for abstinence Opioid withdrawal CBT Psychoeducation Supportive therapy, individual therapy Clonidine when necessary HTN continue prescribed medications Monitor signs and symptoms CHF Continue prescribed medications Monitor signs and symptoms Stroke Continue prescribed medications Monitor signs and symptoms - Smoking Cessation Smoking Cessation Initiated: No
[2017-01-23] MEDS ORDERED: Potassium Chloride 20 mEq ER Tab PO ONE (13:23)
--- NOTE | 2017-01-23 15:31 | CP.PCM.PN ---
Subjective - Date & Time of Evaluation Date of Evaluation: 01/23/17 Time of Evaluation: 15:30 - Subjective Subjective: Progress note. Attending: Dr. Vincent Pt seen and examined at bedside. No acute distress. But blood pressure elevated. No fevers, chills, vomiting, diarrhea. Objective - Vital Signs/Intake and Output Vital Signs (last 24 hours): Temp Pulse Resp BP Pulse Ox 97.9 F 74 18 173/103 H 100 01/23/17 09:53 01/23/17 13:30 01/23/17 13:30 01/23/17 13:30 01/23/17 13:30 - Medications Medications: Current Medications Acetaminophen (Tylenol 325mg Tab) 650 mg PO Q6 PRN PRN Reason: Pain, moderate (4-7) Last Admin: 01/23/17 02:16 Dose: 650 mg Al Hydrox/Mg Hydrox/Simethicone (Maalox 30 Ml) 30 ml PO TID PRN PRN Reason: Indigestion / Heartburn Albuterol (Ventolin Hfa 90 Mcg/Actuation (8 G)) 2 puff IH RQID PRN PRN Reason: Wheezing Last Admin: 01/23/17 09:41 Dose: 2 puff Aspirin (Aspirin Chewable) 81 mg PO DAILY [facility] Last Admin: 01/23/17 09:37 Dose: 81 mg Carvedilol (Coreg) 12.5 mg PO BID [facility] Last Admin: 01/23/17 09:36 Dose: 12.5 mg Clonidine HCl (Catapres) 0.1 mg PO Q8 PRN PRN Reason: COWS Score More or Equal to 5 Last Admin: 01/23/17 06:23 Dose: 0.1 mg Furosemide (Lasix) 40 mg PO BID [facility] Last Admin: 01/23/17 09:53 Dose: 40 mg Home Med (Mometasone/Formoterol [Dulera 200 Mcg/5 Mcg Inhaler]) 2 puff IH BID [facility] Hydralazine HCl (Apresoline) 50 mg PO BID [facility] Hydroxyzine HCl (Atarax) 25 mg PO Q6H PRN PRN Reason: Anxiety Last Admin: 01/23/17 02:16 Dose: 25 mg Isosorbide Mononitrate (Imdur) 60 mg PO DAILY [facility] Last Admin: 01/23/17 09:35 Dose: 60 mg Levetiracetam (Keppra) 500 mg PO BID [facility] Last Admin: 01/23/17 09:35 Dose: 500 mg Lisinopril (Zestril) 40 mg PO DAILY [facility] Last Admin: 01/23/17 09:36 Dose: 40 mg Loperamide HCl (Imodium) 2 mg PO Q8 PRN PRN Reason: Diarrhea Lorazepam (Ativan) 1 mg PO Q6H PRN PRN Reason: Alcohol Withdrawal Last Admin: 01/23/17 10:59 Dose: 1 mg Ondansetron HCl (Zofran Tab) 4 mg PO Q8 PRN PRN Reason: Nausea/Vomiting Last Admin: 01/23/17 02:16 Dose: 4 mg Pantoprazole Sodium (Protonix Ec Tab) 40 mg PO DAILY [facility] Last Admin: 01/23/17 09:37 Dose: 40 mg Trazodone HCl (Desyrel) 50 mg PO HS PRN PRN Reason: Insomnia Last Admin: 01/23/17 02:16 Dose: 50 mg - Labs Labs: 01/23/17 07:58 01/23/17 07:58 - Constitutional Appears: Non-toxic, No Acute Distress, Older Than Stated Age, Cachectic, Chronically Ill - Head Exam Head Exam: ATRAUMATIC, NORMAL INSPECTION, NORMOCEPHALIC - Eye Exam Eye Exam: EOMI - ENT Exam ENT Exam: Mucous Membranes Moist - Neck Exam Neck Exam: Full ROM, Normal Inspection - Respiratory Exam Respiratory Exam: absent: Respiratory Distress - Cardiovascular Exam Cardiovascular Exam: +S1, +S2 - GI/Abdominal Exam GI & Abdominal Exam: Soft, Normal Bowel Sounds. absent: Tenderness - Extremities Exam Extremities Exam: Full ROM. absent: Normal Inspection - Neurological Exam Neurological Exam: Alert, Awake, CN II-XII Intact, Oriented x3 - Psychiatric Exam Psychiatric exam: Depressed, Flat Affect - Skin Skin Exam: Dry, Intact, Normal Color, Warm Assessment and Plan - Assessment and Plan (Free Text) Assessment: This is a 57 yo female with long hx of drug abuse presenting with 1. Opiate withdrawal -pt admitted to detox unit -psych consult. Dr. Jamil. acuna appreciated -medical consult was placed for ongoing chronic medical issues -continue tylenol. -ativan 1 IV q 6 -zofran prn for nausea 2. Hx of seizures -no seizures overnight -keppra 500 mg PO BID -will get keppra level 3. hx of HTN -continue clonidine .1 PO q 8 prn -hydralazine increased to 50 bid -lisinopril daily 4. hx of CAD -asa 81 daily -coreg BID -imdur daily -lisinopril daily 5. hx of CHF -lasix 40 PO BID -previous echo from 02/2016 shows EF of 25-30 percent, mitral regurgitation moderate -may need repeat echo 6. hx of COPD -continue duonebs -o2 by nasal cannula 7. GI/DVT ppx -maalox TID PRN -protonix daily discussed with Dr. Vincent.
[2017-01-23] MEDS ORDERED: Magnesium Sulfate 1 gm in D5W 1 GM/100 ML BAG IVPB ONE (16:34)
[2017-01-23] MEDS ORDERED: Potassium Chloride 20 mEq/15 ml LIQ UD PO ONE (16:35)
--- NOTE | 2017-01-23 17:18 | CP.PCM.PN ---
Subjective - Date & Time of Evaluation Date of Evaluation: 01/23/17 Time of Evaluation: 16:30 - Subjective Subjective: Patient has no complain.No SOB,Denies pain,Able to answer where place and person.Soft voice and lethargic (s/p Ativan,Atarax and trazadone) Objective - Vital Signs/Intake and Output Vital Signs (last 24 hours): Temp Pulse Resp BP Pulse Ox 97.9 F 74 18 173/103 H 100 01/23/17 09:53 01/23/17 13:30 01/23/17 13:30 01/23/17 13:30 01/23/17 13:30 - Medications Medications: Current Medications Acetaminophen (Tylenol 325mg Tab) 650 mg PO Q6 PRN PRN Reason: Pain, moderate (4-7) Last Admin: 01/23/17 02:16 Dose: 650 mg Al Hydrox/Mg Hydrox/Simethicone (Maalox 30 Ml) 30 ml PO TID PRN PRN Reason: Indigestion / Heartburn Albuterol (Ventolin Hfa 90 Mcg/Actuation (8 G)) 2 puff IH RQID PRN PRN Reason: Wheezing Last Admin: 01/23/17 09:41 Dose: 2 puff Aspirin (Aspirin Chewable) 81 mg PO DAILY [facility] Last Admin: 01/23/17 09:37 Dose: 81 mg Carvedilol (Coreg) 12.5 mg PO BID [facility] Last Admin: 01/23/17 09:36 Dose: 12.5 mg Clonidine HCl (Catapres) 0.1 mg PO TID [facility] Furosemide (Lasix) 40 mg PO BID [facility] Last Admin: 01/23/17 09:53 Dose: 40 mg Heparin Sodium (Porcine) (Heparin) 5,000 units SC Q8 [facility] Home Med (Mometasone/Formoterol [Dulera 200 Mcg/5 Mcg Inhaler]) 2 puff IH BID [facility] Hydralazine HCl (Apresoline) 50 mg PO BID [facility] Hydroxyzine HCl (Atarax) 25 mg PO Q6H PRN PRN Reason: Anxiety Last Admin: 01/23/17 02:16 Dose: 25 mg Isosorbide Mononitrate (Imdur) 60 mg PO DAILY [facility] Last Admin: 01/23/17 09:35 Dose: 60 mg Levetiracetam (Keppra) 500 mg PO BID [facility] Last Admin: 01/23/17 09:35 Dose: 500 mg Lisinopril (Zestril) 40 mg PO DAILY [facility] Last Admin: 01/23/17 09:36 Dose: 40 mg Loperamide HCl (Imodium) 2 mg PO Q8 PRN PRN Reason: Diarrhea Lorazepam (Ativan) 0.5 mg PO TID PRN PRN Reason: Agitation Pantoprazole Sodium (Protonix Ec Tab) 40 mg PO DAILY [facility] Last Admin: 01/23/17 09:37 Dose: 40 mg Trazodone HCl (Desyrel) 50 mg PO HS PRN PRN Reason: Insomnia Last Admin: 01/23/17 02:16 Dose: 50 mg - Labs Labs: 01/23/17 07:58 01/23/17 07:58 - Constitutional Appears: Non-toxic, No Acute Distress, Older Than Stated Age, Cachectic, Chronically Ill - Head Exam Head Exam: NORMAL INSPECTION - Eye Exam Pupil Exam: NORMAL ACCOMODATION - ENT Exam ENT Exam: Mucous Membranes Moist - Neck Exam Neck Exam: Full ROM - Respiratory Exam Respiratory Exam: Decreased Breath Sounds, Clear to Ausculation Bilateral, NORMAL BREATHING PATTERN - Cardiovascular Exam Cardiovascular Exam: REGULAR RHYTHM - GI/Abdominal Exam GI & Abdominal Exam: Soft, Normal Bowel Sounds. absent: Guarding, Rigid, Tenderness - Rectal Exam Rectal Exam: Deferred - Extremities Exam Extremities Exam: absent: Full ROM - Back Exam Back Exam: NORMAL INSPECTION - Neurological Exam Neurological Exam: Awake Neuro motor strength exam: Left Upper Extremity: 5, Right Upper Extremity: 4, Left Lower Extremity: 5, Right Lower Extremity: 3 - Psychiatric Exam Psychiatric exam: Flat Affect - Skin Skin Exam: Dry. absent: Diaphoretic Assessment and Plan - Assessment and Plan (Free Text) Assessment: This is a 57 year old female with a past medical history of COPD, CHF, CVA with right side weakness , 2 MIs, HTN, who presented to the emergency department requesting detox from heroin. Patient was pre-screened prior to arrival. Medical consult requested for her extensive medical history. Patient states that she is noncompliance with her medications. Patient was followed at Detox floor for medical management.Her BP was fluctuating.This afternoon hydralazine dose increased.It could be due to nausea and drug withdrawal.[employer] was called for high BP .On examination she was lethargic.She was given Ativan 1mg at 11am,Atarax 25mg at 2pm and Trazadone 50mg at 2pm.She is a cachetic frail patient with multiple medical problem is on multiple medications which can cause sedation As per RN she was not able to swallow meds and not eating well.Her creatinine ok we will admit her for observation for change in mental status and high/ uncontrolled BP Plan: 1.Alatered mental status Likely due to medication induced sedation do CT brain to r/o brain pathology not dehydarted ,with h/o CHF observe without fluids 2.Uncontrolled BP Add clonidine Continue hydralazine,Imdur,Zestril,lasix and coreg May hold lasix if not eating or vomiting 3.Chronic systolic CHF-Stable do chest x ray continue home meds 4.CVA with Right wekaness stable 5.Cachexia do HIv test nutritional eval poor intake/dysphagia ? speech evaluation. 6.COPD -Stable 7.DVT and GI prophylaxis
--- NOTE | 2017-01-23 19:38 | CT ---
EXAM: CT Head Without Intravenous Contrast EXAM DATE/TIME: Exam ordered 01/23/2017 4:34 PM CLINICAL HISTORY: 57 years old, female; Signs and symptoms and condition or disease; Other: Opiate use disorder severe; Altered mental status/memory loss; Additional info: Change in mental status TECHNIQUE: Axial computed tomography images of the head/brain without intravenous contrast. All CT scans at this facility use one or more dose reduction techniques, viz.: automated exposure control; ma/kV adjustment per patient size (including targeted exams where dose is matched to indication; i.e. head); or iterative reconstruction technique. Coronal and sagittal reformatted images were created and reviewed. COMPARISON: No relevant prior studies available. FINDINGS: Brain: There is a chronic left occipital lobe infarct. There is a chronic left frontal lobe infarct. Low density within the periventricular white matter extends into the marcano radiata and centrum semiovale bilaterally and reflects chronic microvascular ischemic change. A 4 mm lacunar infarct is noted within the left thalamus and the right lentiform nucleus respectively.. 1.8 cm infarct is also suggested posteriorly in the left parietal lobe near the high convexity No hemorrhage. Ventricles: Unremarkable. No ventriculomegaly. Bones/joints: Unremarkable. No acute fracture. Soft tissues: Unremarkable. Sinuses: Unremarkable as visualized. No acute sinusitis. Mastoid air cells: Unremarkable as visualized. No mastoid effusion. IMPRESSION: 1. No acute findings. 2. Chronic infarcts noted in the left frontal lobe, the left posterior parietal lobe near the high convexity and in the left occipital lobe. Lacunar infarcts within the thalami and the right lentiform nucleus 3. Chronic microvascular ischemic change in the deep white matter
[2017-01-23] MEDS ORDERED: Sodium Chloride 0.9% 500 ML IV ONE (21:10)
[2017-01-23 23:30] LABS: HEMATOCRIT 43.4 % (34.0-47.0); MEAN CELL VOLUME 81.3 fL (81.0-99.0); MEAN CORPUSCULAR HEMOGLOBIN 26.5 pg (27.0-31.0); MEAN CORPUSCULAR HGB CONC 32.6 g/dL (33.0-37.0); RED CELL DISTRIBUTION WIDTH 17.2 % (11.5-14.5); WHITE BLOOD COUNT 6.4 K/uL (4.8-10.8)
[2017-01-23 23:39] LABS: CHLORIDE 94 mmol/L (98-107); POTASSIUM 5.1 mmol/L (3.6-5.2); SODIUM 128 mmol/L (132-148)
[2017-01-23 23:41] LABS: GFR AFRICAN-AMERICAN > 60
[2017-01-23 23:42] LABS: ALB/GLOB RATIO 0.9 (1.0-2.1); ALKALINE PHOSPHATASE 81 U/L (38-126); ALT/SGPT 25 U/L (9-52); AST/SGOT 23 U/L (14-36); BILIRUBIN,TOTAL 0.4 mg/dL (0.2-1.3); BLOOD UREA NITROGEN 18 mg/dL (7-17); CALCIUM 8.8 mg/dl (8.6-10.4); CARBON DIOXIDE 25 mmol/L (22-30); GLUCOSE,RANDOM 149 mg/dL (65-105); TOTAL PROTEIN 8.1 g/dL (6.3-8.3)
[2017-01-24 07:26] LABS: BASO % 0.7 % (0.0-2.0); EOS % 0.5 % (0.0-4.0); HEMATOCRIT 41.2 % (34.0-47.0); LYMPH # 1.4 K/uL (1.0-4.3); MEAN CORPUSCULAR HEMOGLOBIN 26.5 pg (27.0-31.0); MEAN CORPUSCULAR HGB CONC 33.1 g/dL (33.0-37.0); MEAN PLATELET VOLUME 8.6 fL (7.2-11.7); MONO # 0.4 K/uL (0.0-0.8); MONO % 6.7 % (0.0-10.0); RED CELL DISTRIBUTION WIDTH 17.1 % (11.5-14.5); WHITE BLOOD COUNT 6.2 K/uL (4.8-10.8)
[2017-01-24 07:44] LABS: CHLORIDE 94 mmol/L (98-107); SODIUM 130 mmol/L (132-148)
[2017-01-24 07:47] LABS: ALB/GLOB RATIO 1.2 (1.0-2.1); AST/SGOT 19 U/L (14-36); BILIRUBIN,TOTAL 0.6 mg/dL (0.2-1.3); BLOOD UREA NITROGEN 20 mg/dL (7-17); CARBON DIOXIDE 27 mmol/L (22-30); GFR AFRICAN-AMERICAN > 60; TOTAL PROTEIN 7.1 g/dL (6.3-8.3)
[2017-01-24 07:48] LABS: ALKALINE PHOSPHATASE 82 U/L (38-126); ALT/SGPT 27 U/L (9-52); CALCIUM 8.7 mg/dl (8.6-10.4); GLUCOSE,RANDOM 149 mg/dL (65-105)
--- NOTE | 2017-01-24 09:24 | CP.PCM.PN ---
<Sheridan Cortes - Last Filed: 01/24/17 11:43> Subjective - Date & Time of Evaluation Date of Evaluation: 01/24/17 Time of Evaluation: :17 - Subjective Subjective: Medicine note for Dr. Garcia Patient seen and examined at bedside. Patient resting comfortably in bed with no new complaints at this time. Patient says she is having difficulty talking without her dentures because her accidentally flushed them down the toilet when emptying her vomit. Patient says she is feeling well and wishes to go home. Patient denies headache, dizziness, blurry vision, chest pain, SOB, abdominal pain, n/v/d/c, calf pain, and LE swelling. Objective - Vital Signs/Intake and Output Vital Signs (last 24 hours): Temp Pulse Resp BP Pulse Ox 97.0 F L 65 20 109/73 96 01/23/17 23:30 01/23/17 23:30 01/23/17 23:30 01/23/17 23:30 01/23/17 23:30 Intake and Output: 01/24/17 01/24/17 06:59 18:59 Intake Total 200 Balance 200 - Medications Medications: Current Medications Acetaminophen (Tylenol 325mg Tab) 650 mg PO Q6 PRN PRN Reason: Pain, moderate (4-7) Last Admin: 01/23/17 02:16 Dose: 650 mg Al Hydrox/Mg Hydrox/Simethicone (Maalox 30 Ml) 30 ml PO TID PRN PRN Reason: Indigestion / Heartburn Albuterol (Ventolin Hfa 90 Mcg/Actuation (8 G)) 2 puff IH RQID PRN PRN Reason: Wheezing Last Admin: 01/23/17 09:41 Dose: 2 puff Aspirin (Aspirin Chewable) 81 mg PO DAILY [facility] Last Admin: 01/23/17 09:37 Dose: 81 mg Carvedilol (Coreg) 12.5 mg PO BID [facility] Last Admin: 01/23/17 18:53 Dose: 12.5 mg Clonidine HCl (Catapres) 0.1 mg PO TID [facility] Last Admin: 01/23/17 18:55 Dose: 0.1 mg Furosemide (Lasix) 40 mg PO BID [facility] Last Admin: 01/23/17 18:54 Dose: 40 mg Heparin Sodium (Porcine) (Heparin) 5,000 units SC Q8 [facility] Last Admin: 01/24/17 05:46 Dose: 5,000 units Home Med (Mometasone/Formoterol [Dulera 200 Mcg/5 Mcg Inhaler]) 2 puff IH BID [facility] Hydralazine HCl (Apresoline) 50 mg PO BID [facility] Last Admin: 01/23/17 18:54 Dose: 50 mg Hydroxyzine HCl (Atarax) 25 mg PO Q6H PRN PRN Reason: Anxiety Last Admin: 01/23/17 02:16 Dose: 25 mg Isosorbide Mononitrate (Imdur) 60 mg PO DAILY [facility] Last Admin: 01/23/17 09:35 Dose: 60 mg Levetiracetam (Keppra) 500 mg PO BID [facility] Last Admin: 01/23/17 18:55 Dose: 500 mg Lisinopril (Zestril) 40 mg PO DAILY [facility] Last Admin: 01/23/17 09:36 Dose: 40 mg Loperamide HCl (Imodium) 2 mg PO Q8 PRN PRN Reason: Diarrhea Lorazepam (Ativan) 0.5 mg PO TID PRN PRN Reason: Agitation Pantoprazole Sodium (Protonix Ec Tab) 40 mg PO DAILY [facility] Last Admin: 01/23/17 09:37 Dose: 40 mg Trazodone HCl (Desyrel) 50 mg PO HS PRN PRN Reason: Insomnia Last Admin: 01/23/17 02:16 Dose: 50 mg - Labs Labs: 01/24/17 07:02 01/24/17 07:02 - Additional Findings Additional findings: - Constitutional Appears: Non-toxic, No Acute Distress, Older Than Stated Age, Cachectic, Chronically Ill - Head Exam Head Exam: NORMAL INSPECTION - Eye Exam Pupil Exam: NORMAL ACCOMODATION - ENT Exam ENT Exam: Mucous Membranes Dry - Neck Exam Neck Exam: Full ROM - Respiratory Exam Respiratory Exam: Decreased Breath Sounds, Clear to Ausculation Bilateral, NORMAL BREATHING PATTERN - Cardiovascular Exam Cardiovascular Exam: REGULAR RHYTHM - GI/Abdominal Exam GI & Abdominal Exam: Soft, Normal Bowel Sounds. absent: Guarding, Rigid, Tenderness - Rectal Exam Rectal Exam: Deferred - Extremities Exam Extremities Exam: absent: Full ROM - Back Exam Back Exam: NORMAL INSPECTION - Neurological Exam Neurological Exam: Awake Neuro motor strength exam: Left Upper Extremity: 5, Right Upper Extremity: 4, Left Lower Extremity: 5, Right Lower Extremity: 3 - Psychiatric Exam Psychiatric exam: Flat Affect - Skin Skin Exam: Warm. Dry. In tact. absent: Diaphoretic Assessment and Plan - Assessment and Plan (Free Text) Plan: 1.Altered mental status * Likely due to medication induced sedation * discontinued trazadone 01/24/17 * CT brain: Chronic stroke, no acute findings (see full report) * NS @100cc/hr x1 bag, with h/o CHF observe 2.Hypertensive urgency * Add clonidine * Continue hydralazine,Imdur,Zestril,lasix and coreg * May hold lasix if not eating or vomiting 3.Chronic systolic CHF-Stable * Rales on auscultation (01/24/17) * f/u chest x ray * If looks bad will order CT chest * f/u sputum culture * continue home meds 4.CVA with Right wekaness * CT brain: Chronic stroke, no acute findings (see full report) * stable 5.Cachexia * HIV negative * nutritional eval * swallow/speech eval: pureed diet with thin liquids since without dentures 6.COPD * Stable 7.History of heroin abuse * UDS positive for opiates only 8.DVT and GI prophylaxis <Lex Garcia - Last Filed: 01/24/17 17:18> Objective - Vital Signs/Intake and Output Vital Signs (last 24 hours): Temp Pulse Resp BP Pulse Ox 97.7 F 76 18 106/71 95 01/24/17 15:38 01/24/17 15:38 01/24/17 15:38 01/24/17 15:38 01/24/17 15:38 Intake and Output: 01/24/17 01/24/17 06:59 18:59 Intake Total 200 Balance 200 - Medications Medications: Current Medications Acetaminophen (Tylenol 325mg Tab) 650 mg PO Q6 PRN PRN Reason: Pain, moderate (4-7) Last Admin: 01/23/17 02:16 Dose: 650 mg Al Hydrox/Mg Hydrox/Simethicone (Maalox 30 Ml) 30 ml PO TID PRN PRN Reason: Indigestion / Heartburn Albuterol (Ventolin Hfa 90 Mcg/Actuation (8 G)) 2 puff IH RQID PRN PRN Reason: Wheezing Last Admin: 01/23/17 09:41 Dose: 2 puff Aspirin (Aspirin Chewable) 81 mg PO DAILY [facility] Last Admin: 01/24/17 10:00 Dose: 81 mg Carvedilol (Coreg) 12.5 mg PO BID [facility] Last Admin: 01/24/17 10:00 Dose: 12.5 mg Clonidine HCl (Catapres) 0.1 mg PO TID [facility] Last Admin: 01/24/17 14:41 Dose: 0.1 mg Furosemide (Lasix) 40 mg PO BID [facility] Last Admin: 01/24/17 09:59 Dose: 40 mg Heparin Sodium (Porcine) (Heparin) 5,000 units SC Q8 [facility] Last Admin: 01/24/17 05:46 Dose: 5,000 units Hydralazine HCl (Apresoline) 50 mg PO BID [facility] Last Admin: 01/24/17 09:59 Dose: 50 mg Hydroxyzine HCl (Atarax) 25 mg PO Q6H PRN PRN Reason: Anxiety Last Admin: 01/23/17 02:16 Dose: 25 mg Sodium Chloride (Sodium Chloride 0.9%) 1,000 mls @ 100 mls/hr IV .Q10H [facility] Stop: 01/24/17 20:59 Last Admin: 01/23/17 12:00 Dose: 100 mls/hr Isosorbide Mononitrate (Imdur) 60 mg PO DAILY [facility] Last Admin: 01/24/17 10:01 Dose: 60 mg Levetiracetam (Keppra) 500 mg PO BID [facility] Last Admin: 01/24/17 10:01 Dose: 500 mg Lisinopril (Zestril) 40 mg PO DAILY [facility] Last Admin: 01/24/17 09:59 Dose: 40 mg Loperamide HCl (Imodium) 2 mg PO Q8 PRN PRN Reason: Diarrhea Lorazepam (Ativan) 0.5 mg PO TID PRN PRN Reason: Agitation Pantoprazole Sodium (Protonix Ec Tab) 40 mg PO DAILY [facility] Last Admin: 01/24/17 10:00 Dose: 40 mg Fluticasone/Salmeterol (Advair Diskus 250/50) 1 puff INH RQ12 [facility] - Labs Labs: 01/24/17 07:02 01/24/17 07:02 Attending/Attestation - Attestation I have personally seen and examined this patient.: Yes I have fully participated in the care of the patient.: Yes I have reviewed all pertinent clinical information, including history, physical exam and plan: Yes Notes (Text): 01/24/17 17:18 Medical attending: Patient was seen and examined by me, agrees the above note by electromedical equipment technician. Today the patient was more interactive with us. She was able to communicate that she knew she was at [facility] (formerly [facility]), she is able to tell us her correct birthday, and she was also answering most questions correctly as well. She does have a very slow affect when we spoke with her As mentioned previously there was a rapid response overall 7 detox and she was brought over to the hospitalist service. We discontinued a lot of medications it appeared that she was overly sedated however this is difficult to say. She is able to tell us that she takes about 4 bags of heroin a day she denied using IV drugs, however this is questionable. Also her blood pressure was much improved since yesterday as well. Thank you very much Lex Garcia
[2017-01-24] MEDS: Pantoprazole 40 mg EC Tab PO SCH (10:00)
[2017-01-24] MEDS ORDERED: Sodium Chloride 0.9% 1,000 ML IV SCH (11:00)
--- NOTE | 2017-01-24 14:35 | RAD ---
Chest x-ray single frontal view History: Congestive heart failure. Comparison: 11/30/2016 Findings: Prominent consolidative opacification in the right mid to lower lung zone with small right pleural effusion. Post treatment interval followup is recommended to ensure resolution. Diffuse increased interstitial lung markings. Tortuous ectatic aorta. Left-sided pacemaker. Cardiomegaly. Degenerative changes in the spine and shoulders. Impression: Prominent consolidative opacification in the right mid to lower lung zone with small right pleural effusion. Post treatment interval followup is recommended to ensure resolution.
[2017-01-24] MEDS ORDERED: Fluticasone-Salmeterol 250-50mcg Diskus INH SCH (20:00)
--- NOTE | 2017-01-24 21:37 | CARD ---
APPROVED REPORT EKG Measurement Heart [id number] <Conclusion> Normal sinus rhythm Biatrial enlargement Left ventricular hypertrophy T wave abnormality, consider anterior ischemia Prolonged QT Abnormal ECG
--- NOTE | 2017-01-24 22:09 | PCM.PYCHPN ---
Psychiatric Progress Note - Psychiatric Progress Note Patient seen today, length of contact: 15 min Patient Chief Complaint: "Tired" Problems Identified/Issues Discussed: The pt is seen, chart reviewed, case discussed Improving slowly No opioid wdw noticed Frail, fatigued, disabled Likely needs [facility], not a candidate for drug-rehab with multiple and severe medical issues Psych will follow while here but no need for psych or detox readmission at this point. No SI, HI, AVH/del. Oriented but inattentive and forgetful Medication Change: Yes Medical Record Reviewed: Yes Mental Status Examination - Cognitive Function Orientation: Person, Place, Situation, Time Memory: Impaired Attention: Poor Concentration: Poor Association: WNL Fund of Knowledge: Poor - Mood Mood: Anxious - Affect Affect: Constricted - Speech Speech: Appropriate, Soft - Formal Thought Process Formal Thought Process: No Impairment - Suicidal Ideation Suicidal Ideation: No - Homicidal Ideation Homicidal Ideation: No Goal/Treatment Plan - Goal/Treatment Plan Need for Continued Stay: Discharge may exacerbated symptoms, Severe functional impairment, Other (medical) Progress Toward Problem(s) and Goals/Treatment Plan: Continue meds prn meds Support and psychoed Refer to [facility], followed by IOP or maintenance
[2017-01-25] MEDS: Pantoprazole 40 mg EC Tab PO SCH (09:45)
[2017-01-25] MEDS: cefTRIAXone IV 1 gm in Dextros 50 ML IVPB SCH (09:45)
--- NOTE | 2017-01-25 10:48 | CT ---
CT chest without IV contrast Indication: abnormal CXR, poss pneumonia Technique: Contiguous axial images were obtained through the chest without intravenous contrast enhancement. Sagittal and coronal reconstructions were generated and reviewed. This CT exam was performed using 1 or more of the falling dose reduction techniques: Automated exposure control, adjustment of the MAA and/or kV according to patient size, and/or use of iterative reconstruction technique. Radiation dose (DLP): 144.13 MGy-cm. Comparison: CT chest without contrast performed 11/30/16 Findings: Visualized portions of the inferior thyroid gland appear unremarkable. The unenhanced mediastinal and hilar vascular structures appear grossly unremarkable. Single lead left-sided AICD. Cardiomegaly. Trace effusion. Right hilar prominence. Hyperinflation consistent with COPD. Extensive emphysematous and fibrotic changes. Probable pneumonia within the right middle and right lower lobes. No pleural effusion. No pneumothorax. 6 mm left lower lobe pulmonary nodule re-identified (series 3, image 73). Limited visualization of the noncontrast upper abdomen appears grossly unremarkable. Degenerative changes. Impression: Single lead left-sided AICD. Cardiomegaly. Trace effusion. Right hilar prominence. Follow-up CT of the chest with IV contrast may be considered for further evaluation. Hyperinflation consistent with COPD. Extensive emphysematous and fibrotic changes. Probable pneumonia within the right middle and right lower lobes. Recommend follow-up to clearing. 6 mm left lower lobe pulmonary nodule re-identified. Recommend CT at 6-12 months from initial detection, then CT at 18-24 months.
[2017-01-25] MEDS: Azithromycin 500 MG in Sodium Chloride 0.9% 250 ML IVPB SCH (11:21)
[2017-01-25 11:43] LABS: BASO % 0.5 % (0.0-2.0); EOS % 0.2 % (0.0-4.0); HEMATOCRIT 40.3 % (34.0-47.0); LYMPH # 1.2 K/uL (1.0-4.3); LYMPH % 13.9 % (20.0-40.0); MEAN CORPUSCULAR HEMOGLOBIN 26.4 pg (27.0-31.0); MEAN CORPUSCULAR HGB CONC 32.6 g/dL (33.0-37.0); MEAN PLATELET VOLUME 9.1 fL (7.2-11.7); MONO # 0.5 K/uL (0.0-0.8); MONO % 6.1 % (0.0-10.0); NRBC % 0.1 % (0.0-2.0); RED CELL DISTRIBUTION WIDTH 17.1 % (11.5-14.5); WHITE BLOOD COUNT 8.9 K/uL (4.8-10.8)
[2017-01-25 12:20] LABS: ALKALINE PHOSPHATASE 72 U/L (38-126); ALT/SGPT 27 U/L (9-52); AST/SGOT 27 U/L (14-36); BILIRUBIN,TOTAL 0.4 mg/dL (0.2-1.3); BLOOD UREA NITROGEN 20 mg/dL (7-17); CARBON DIOXIDE 25 mmol/L (22-30); CHLORIDE 95 mmol/L (98-107); GFR AFRICAN-AMERICAN > 60; GLUCOSE,RANDOM 124 mg/dL (65-105); MAGNESIUM 1.7 mg/dL (1.6-2.3); POTASSIUM 3.2 mmol/L (3.6-5.2); SODIUM 128 mmol/L (132-148); TOTAL PROTEIN 7.3 g/dL (6.3-8.3)
[2017-01-25 12:35] LABS: ABG ALLEN TEST PO; CARBOXYHEMOGLOBIN 2.4 % (0.5-1.5); DRAW SITE LR; HHB 5.1 % (0.0-5.0); METHEMOGLOBIN 1.5 % (0.0-3.0)
[2017-01-25 12:42] LABS: ALB/GLOB RATIO 0.9 (1.0-2.1)
--- NOTE | 2017-01-25 12:42 | CARD ---
APPROVED REPORT EKG Measurement Heart [id number] <Conclusion> Normal sinus rhythm Left axis deviation Minimal voltage criteria for LVH, may be normal variant Prolonged QT Abnormal ECG
[2017-01-25] MEDS: Sodium Chloride 0.45% 1,000 ML IV SCH (13:00)
[2017-01-25] MEDS ORDERED: Potassium Chloride 20 mEq ER Tab PO ONE (13:05)
--- NOTE | 2017-01-25 13:16 | CP.PCM.PN ---
<Sheridan Cortes - Last Filed: 01/25/17 13:56> Subjective - Date & Time of Evaluation Date of Evaluation: 01/25/17 Time of Evaluation: 07:30 - Subjective Subjective: Medicine note for Dr. Garcia Patient seen and examined at bedside. Patient resting comfortably in bed. Patient is having bright red blood in the tissue when blowing her nose. Patient says this started today. She is also coughing red tinged sputum. Patient says she feels much better than when she got here and wants to go home. I explained to her that she will need antibiotic treatment for possible pneumonia. Patient is also saying she wants a cigarette and that she was not given a nicotine patch on arrival. She denies chest pain, SOB, abdominal pain, n/v/d/c, leg pain and swelling. UPDATE: I was paged at approximately 11:45 by nursing who said the family was visiting and after 5 minutes they left and noticed the patient was lethargic. They suspect the patient may have been given drugs by her family since they pulled the curtain while they were in the room supposedly helping her use the bathroom. Nursing says the family was only visiting for these 5 minutes and then left. Objective - Vital Signs/Intake and Output Vital Signs (last 24 hours): Temp Pulse Resp BP Pulse Ox 98.5 F 70 20 97/68 L 100 01/25/17 07:00 01/25/17 07:00 01/25/17 07:00 01/25/17 09:49 01/25/17 07:00 Intake and Output: 01/25/17 01/25/17 06:59 18:59 Intake Total 700 Balance 700 - Medications Medications: Current Medications Acetaminophen (Tylenol 325mg Tab) 650 mg PO Q6 PRN PRN Reason: Pain, moderate (4-7) Last Admin: 01/23/17 02:16 Dose: 650 mg Al Hydrox/Mg Hydrox/Simethicone (Maalox 30 Ml) 30 ml PO TID PRN PRN Reason: Indigestion / Heartburn Albuterol (Ventolin Hfa 90 Mcg/Actuation (8 G)) 2 puff IH RQID PRN PRN Reason: Wheezing Last Admin: 01/23/17 09:41 Dose: 2 puff Aspirin (Aspirin Chewable) 81 mg PO DAILY [facility] Last Admin: 01/25/17 09:45 Dose: 81 mg Carvedilol (Coreg) 12.5 mg PO BID [facility] Last Admin: 01/25/17 11:00 Dose: Not Given Clonidine HCl (Catapres) 0.1 mg PO TID [facility] Last Admin: 01/25/17 11:00 Dose: Not Given Heparin Sodium (Porcine) (Heparin) 5,000 units SC Q8 [facility] Last Admin: 01/25/17 05:42 Dose: 5,000 units Hydralazine HCl (Apresoline) 50 mg PO BID [facility] Last Admin: 01/25/17 11:00 Dose: Not Given Hydroxyzine HCl (Atarax) 25 mg PO Q6H PRN PRN Reason: Anxiety Last Admin: 01/23/17 02:16 Dose: 25 mg Azithromycin 500 mg/ Sodium (Chloride) 250 mls @ 250 mls/hr IVPB DAILY@1030 [facility] Last Admin: 01/25/17 11:21 Dose: 250 mls/hr Ceftriaxone Sodium (Rocephin Iv 1 Gm Duplex) 50 mls @ 100 mls/hr IVPB DAILY [facility] Last Admin: 01/25/17 09:45 Dose: 100 mls/hr Sodium Chloride (Sodium Chloride 0.45%) 1,000 mls @ 75 mls/hr IV .[id number] [facility] Last Admin: 01/25/17 13:00 Dose: 75 mls/hr Isosorbide Mononitrate (Imdur) 60 mg PO DAILY [facility] Last Admin: 01/25/17 09:45 Dose: 60 mg Levetiracetam (Keppra) 500 mg PO BID [facility] Last Admin: 01/25/17 09:45 Dose: 500 mg Lisinopril (Zestril) 40 mg PO DAILY [facility] Last Admin: 01/25/17 11:00 Dose: Not Given Loperamide HCl (Imodium) 2 mg PO Q8 PRN PRN Reason: Diarrhea Lorazepam (Ativan) 0.5 mg PO TID PRN PRN Reason: Agitation Nicotine (Nicoderm Cq) 1 patch TD DAILY [facility] Last Admin: 01/25/17 13:08 Dose: 1 patch Pantoprazole Sodium (Protonix Ec Tab) 40 mg PO DAILY [facility] Last Admin: 01/25/17 09:45 Dose: 40 mg Fluticasone/Salmeterol (Advair Diskus 250/50) 1 puff INH RQ12 [facility] - Labs Labs: 01/25/17 11:30 01/25/17 11:30 - Additional Findings Additional findings: - Constitutional Appears: Non-toxic, No Acute Distress, Older Than Stated Age, Cachectic, Chronically Ill - Head Exam Head Exam: NORMAL INSPECTION - Eye Exam Pupil Exam: NORMAL ACCOMODATION - ENT Exam ENT Exam: Mucous Membranes Dry - Neck Exam Neck Exam: Full ROM - Respiratory Exam Respiratory Exam: Decreased Breath Sounds, Clear to Ausculation Bilateral, NORMAL BREATHING PATTERN - Cardiovascular Exam Cardiovascular Exam: REGULAR RHYTHM - GI/Abdominal Exam GI & Abdominal Exam: Soft, Normal Bowel Sounds. absent: Guarding, Rigid, Tenderness - Extremities Exam Extremities Exam: absent: Full ROM - Back Exam Back Exam: NORMAL INSPECTION - Neurological Exam Neurological Exam: Awake Neuro motor strength exam: Left Upper Extremity: 5, Right Upper Extremity: 4, Left Lower Extremity: 5, Right Lower Extremity: 3 - Psychiatric Exam Psychiatric exam: Normal Affect - Skin Skin Exam: Warm. Dry. In tact. absent: Diaphoretic Assessment and Plan - Assessment and Plan (Free Text) Plan: 1.Altered mental status * Likely due to medication induced sedation * discontinued trazadone 01/24/17 * CT brain: Chronic stroke, no acute findings (see full report) * 1/2NS @75cc/hr, with h/o CHF observe 2.Hypertensive urgency * Add clonidine * Continue hydralazine,Imdur,Zestril, and coreg * Lasix discontinued on 01/25/17 3.Chronic systolic CHF-Stable * Rales on auscultation (01/24/17) * chest x ray: Prominent consolidative opacification in the right mid to lower lung zone with small right pleural effusion. Post treatment interval followup is recommended to ensure resolution. * CT chest: Single lead left-sided AICD. Cardiomegaly. Trace effusion. Right hilar prominence. Follow-up CT of the chest with IV contrast may be considered for further evaluation. Hyperinflation consistent with COPD. Extensive emphysematous and fibrotic changes. Probable pneumonia within the right middle and right lower lobes. Recommend follow-up to clearing. 6 mm left lower lobe pulmonary nodule re-identified. Recommend CT at 6-12 months from initial detection, then CT at 18-24 months. * f/u sputum culture * continue home meds 4. Pneumonia * Rocephin 1 g IV QD * Zithromax 500 mg IV QD 5.CVA with Right wekaness * CT brain: Chronic stroke, no acute findings (see full report) * stable 6.Cachexia * HIV negative * nutritional eval * swallow/speech eval: pureed diet with thin liquids since without dentures 7.COPD * Stable 8.History of substance abuse * UDS positive for opiates only * 01/25 possible use in hospital however not confirmed * f/u UDS * ABG: pCO2 35; pO2 59; HCO3 25.8; pH 7.46 * Nicotine patch 9.DVT and GI prophylaxis <Lex Garcia - Last Filed: 01/25/17 16:12> Objective - Vital Signs/Intake and Output Vital Signs (last 24 hours): Temp Pulse Resp BP Pulse Ox 98.6 F 71 20 96/62 L 95 01/25/17 15:11 01/25/17 15:11 01/25/17 15:11 01/25/17 15:11 01/25/17 15:11 Intake and Output: 01/25/17 01/25/17 06:59 18:59 Intake Total 700 825 Balance 700 825 - Medications Medications: Current Medications Acetaminophen (Tylenol 325mg Tab) 650 mg PO Q6 PRN PRN Reason: Pain, moderate (4-7) Last Admin: 01/23/17 02:16 Dose: 650 mg Al Hydrox/Mg Hydrox/Simethicone (Maalox 30 Ml) 30 ml PO TID PRN PRN Reason: Indigestion / Heartburn Albuterol (Ventolin Hfa 90 Mcg/Actuation (8 G)) 2 puff IH RQID PRN PRN Reason: Wheezing Last Admin: 01/23/17 09:41 Dose: 2 puff Aspirin (Aspirin Chewable) 81 mg PO DAILY [facility] Last Admin: 01/25/17 09:45 Dose: 81 mg Carvedilol (Coreg) 12.5 mg PO BID [facility] Last Admin: 01/25/17 11:00 Dose: Not Given Clonidine HCl (Catapres) 0.1 mg PO TID [facility] Last Admin: 01/25/17 13:45 Dose: Not Given Heparin Sodium (Porcine) (Heparin) 5,000 units SC Q8 [facility] Last Admin: 01/25/17 13:44 Dose: 5,000 units Hydralazine HCl (Apresoline) 50 mg PO BID [facility] Last Admin: 01/25/17 11:00 Dose: Not Given Hydroxyzine HCl (Atarax) 25 mg PO Q6H PRN PRN Reason: Anxiety Last Admin: 01/23/17 02:16 Dose: 25 mg Azithromycin 500 mg/ Sodium (Chloride) 250 mls @ 250 mls/hr IVPB DAILY@1030 [facility] Last Admin: 01/25/17 11:21 Dose: 250 mls/hr Ceftriaxone Sodium (Rocephin Iv 1 Gm Duplex) 50 mls @ 100 mls/hr IVPB DAILY [facility] Last Admin: 01/25/17 09:45 Dose: 100 mls/hr Sodium Chloride (Sodium Chloride 0.45%) 1,000 mls @ 75 mls/hr IV .[id number] [facility] Last Admin: 01/25/17 13:00 Dose: 75 mls/hr Isosorbide Mononitrate (Imdur) 60 mg PO DAILY [facility] Last Admin: 01/25/17 09:45 Dose: 60 mg Levetiracetam (Keppra) 500 mg PO BID [facility] Last Admin: 01/25/17 09:45 Dose: 500 mg Lisinopril (Zestril) 40 mg PO DAILY [facility] Last Admin: 01/25/17 11:00 Dose: Not Given Loperamide HCl (Imodium) 2 mg PO Q8 PRN PRN Reason: Diarrhea Lorazepam (Ativan) 0.5 mg PO TID PRN PRN Reason: Agitation Nicotine (Nicoderm Cq) 1 patch TD DAILY [facility] Last Admin: 01/25/17 13:08 Dose: 1 patch Pantoprazole Sodium (Protonix Ec Tab) 40 mg PO DAILY [facility] Last Admin: 01/25/17 09:45 Dose: 40 mg Fluticasone/Salmeterol (Advair Diskus 250/50) 1 puff INH RQ12 [facility] - Labs Labs: 01/25/17 11:30 01/25/17 11:30 Attending/Attestation - Attestation I have personally seen and examined this patient.: Yes I have fully participated in the care of the patient.: Yes I have reviewed all pertinent clinical information, including history, physical exam and plan: Yes Notes (Text): 01/25/17 16:12 Medical attending: Patient was seen and examined by me, agrees the above note by medical collections. When I rounded on the patient this morning, she was able to eat on her own she did need some assistance. However she appeared to be answering questions appropriately. She did not appear to be in any acute distress when we saw her. Later on I was notified that the patient suddenly became somnolent after a family member came. The medical collections as well as the nurse seen the patient are worried that she could've potentially been given some sort of substance. This family member is not returned back however it is concerning. At this moment we got a CT scan in the morning were waiting on the results she is on IV antibiotics in case she has pneumonia Blood pressure seems to be better controlled now. As mentioned earlier she had very elevated systolic blood pressures. Her fluid has been changed from normal saline over to half-normal saline. We will also stop the Lasix as well thank you Lex Garcia
--- NOTE | 2017-01-25 15:05 | PCM.PYCHPN ---
Psychiatric Progress Note - Psychiatric Progress Note Patient seen today, length of contact: 15 min Patient Chief Complaint: "I feel okay" Problems Identified/Issues Discussed: The pt is seen, chart reviewed, case discussed No opioid wdw noticed Psych will follow while here but no need for psych or detox readmission at this point. No SI, HI, AVH/del. Oriented Support given Psych will sign off Medication Change: No Medical Record Reviewed: Yes Mental Status Examination - Cognitive Function Orientation: Person, Place, Situation, Time Memory: Impaired Attention: Poor Concentration: Poor Association: WNL Fund of Knowledge: Poor - Mood Mood: Anxious - Affect Affect: Constricted - Speech Speech: Appropriate, Soft - Formal Thought Process Formal Thought Process: No Impairment - Suicidal Ideation Suicidal Ideation: No - Homicidal Ideation Homicidal Ideation: No Goal/Treatment Plan - Goal/Treatment Plan Need for Continued Stay: Discharge may exacerbated symptoms, Severe functional impairment, Other (medical) Progress Toward Problem(s) and Goals/Treatment Plan: Continue meds prn meds Support and psychoed Refer to [facility], followed by IOP or maintenance
[2017-01-26] MEDS: Sodium Chloride 0.45% 1,000 ML IV SCH ×4 (02:05→20:48)
[2017-01-26 07:02] LABS: BASO # 0.1 K/uL (0.0-0.2); EOS % 0.7 % (0.0-4.0); HEMATOCRIT 40.2 % (34.0-47.0); LYMPH # 1.8 K/uL (1.0-4.3); LYMPH % 26.3 % (20.0-40.0); MEAN CELL VOLUME 80.6 fL (81.0-99.0); MEAN CORPUSCULAR HEMOGLOBIN 26.4 pg (27.0-31.0); MEAN CORPUSCULAR HGB CONC 32.8 g/dL (33.0-37.0); MEAN PLATELET VOLUME 9.1 fL (7.2-11.7); MONO # 0.5 K/uL (0.0-0.8); MONO % 7.9 % (0.0-10.0); NRBC % 0.1 % (0.0-2.0); RED CELL DISTRIBUTION WIDTH 16.9 % (11.5-14.5); WHITE BLOOD COUNT 6.8 K/uL (4.8-10.8)
[2017-01-26 07:30] LABS: ALB/GLOB RATIO 1.1 (1.0-2.1); ALKALINE PHOSPHATASE 72 U/L (38-126); ALT/SGPT 23 U/L (9-52); AST/SGOT 19 U/L (14-36); BILIRUBIN,TOTAL 0.5 mg/dL (0.2-1.3); BLOOD UREA NITROGEN 14 mg/dL (7-17); CARBON DIOXIDE 26 mmol/L (22-30); CHLORIDE 98 mmol/L (98-107); GFR AFRICAN-AMERICAN > 60; GLUCOSE,RANDOM 92 mg/dL (65-105); MAGNESIUM 1.7 mg/dL (1.6-2.3); PHOSPHOROUS 2.6 mg/dL (2.5-4.5); POTASSIUM 3.6 mmol/L (3.6-5.2); SODIUM 130 mmol/L (132-148); TOTAL PROTEIN 6.5 g/dL (6.3-8.3)
--- NOTE | 2017-01-26 09:50 | CP.PCM.PN ---
<Sheridan Cortes - Last Filed: 01/26/17 13:26> Subjective - Date & Time of Evaluation Date of Evaluation: 01/26/17 Time of Evaluation: 07:10 - Subjective Subjective: Medicine note for Dr. Garcia. Patient seen and examined at bedside. Patient resting comfortably in bed with no new complaints at this time. Patient is wanting to go home. Patient is still having cough productive of blood tinged sputum. Patient denies fever, chills, chest pain, SOB, abdominal pain, n/v/d/c, calf pain, and LE edema. Objective - Vital Signs/Intake and Output Vital Signs (last 24 hours): Temp Pulse Resp BP Pulse Ox 98.5 F 66 20 184/107 H 99 01/26/17 07:00 01/26/17 07:00 01/26/17 07:00 01/26/17 07:00 01/26/17 07:00 Intake and Output: 01/26/17 01/26/17 06:59 18:59 Intake Total 1000 720 Output Total 600 4 Balance 400 716 - Medications Medications: Current Medications Acetaminophen (Tylenol 325mg Tab) 650 mg PO Q6 PRN PRN Reason: Pain, moderate (4-7) Last Admin: 01/23/17 02:16 Dose: 650 mg Al Hydrox/Mg Hydrox/Simethicone (Maalox 30 Ml) 30 ml PO TID PRN PRN Reason: Indigestion / Heartburn Albuterol (Ventolin Hfa 90 Mcg/Actuation (8 G)) 2 puff IH RQID PRN PRN Reason: Wheezing Last Admin: 01/23/17 09:41 Dose: 2 puff Aspirin (Aspirin Chewable) 81 mg PO DAILY [facility] Last Admin: 01/25/17 09:45 Dose: 81 mg Carvedilol (Coreg) 12.5 mg PO BID [facility] Last Admin: 01/25/17 17:14 Dose: Not Given Clonidine HCl (Catapres) 0.1 mg PO TID [facility] Last Admin: 01/25/17 17:14 Dose: Not Given Heparin Sodium (Porcine) (Heparin) 5,000 units SC Q8 [facility] Last Admin: 01/26/17 05:06 Dose: 5,000 units Hydralazine HCl (Apresoline) 50 mg PO BID [facility] Last Admin: 01/25/17 17:15 Dose: Not Given Hydroxyzine HCl (Atarax) 25 mg PO Q6H PRN PRN Reason: Anxiety Last Admin: 01/23/17 02:16 Dose: 25 mg Azithromycin 500 mg/ Sodium (Chloride) 250 mls @ 250 mls/hr IVPB DAILY@1030 [facility] Last Admin: 01/25/17 11:21 Dose: 250 mls/hr Ceftriaxone Sodium (Rocephin Iv 1 Gm Duplex) 50 mls @ 100 mls/hr IVPB DAILY [facility] Last Admin: 01/25/17 09:45 Dose: 100 mls/hr Sodium Chloride (Sodium Chloride 0.45%) 1,000 mls @ 75 mls/hr IV .[id number] [facility] Last Admin: 01/26/17 05:06 Dose: 75 mls/hr Isosorbide Mononitrate (Imdur) 60 mg PO DAILY [facility] Last Admin: 01/25/17 09:45 Dose: 60 mg Levetiracetam (Keppra) 500 mg PO BID [facility] Last Admin: 01/25/17 17:13 Dose: 500 mg Lisinopril (Zestril) 40 mg PO DAILY [facility] Last Admin: 01/25/17 11:00 Dose: Not Given Loperamide HCl (Imodium) 2 mg PO Q8 PRN PRN Reason: Diarrhea Last Admin: 01/26/17 02:24 Dose: 2 mg Lorazepam (Ativan) 0.5 mg PO TID PRN PRN Reason: Agitation Nicotine (Nicoderm Cq) 1 patch TD DAILY [facility] Last Admin: 01/25/17 13:08 Dose: 1 patch Pantoprazole Sodium (Protonix Ec Tab) 40 mg PO DAILY [facility] Last Admin: 01/25/17 09:45 Dose: 40 mg Fluticasone/Salmeterol (Advair Diskus 250/50) 1 puff INH RQ12 [facility] - Labs Labs: 01/26/17 06:49 01/26/17 06:49 - Additional Findings Additional findings: - Constitutional Appears: Non-toxic, No Acute Distress, Older Than Stated Age, Cachectic, Chronically Ill - Head Exam Head Exam: NORMAL INSPECTION - Eye Exam Pupil Exam: NORMAL ACCOMODATION - ENT Exam ENT Exam: Mucous Membranes Dry - Neck Exam Neck Exam: Full ROM - Respiratory Exam Respiratory Exam: Decreased Breath Sounds, Rales b/l, NORMAL BREATHING PATTERN - Cardiovascular Exam Cardiovascular Exam: REGULAR RHYTHM - GI/Abdominal Exam GI & Abdominal Exam: Soft, Normal Bowel Sounds. absent: Guarding, Rigid, Tenderness - Extremities Exam Extremities Exam: absent: Full ROM - Back Exam Back Exam: NORMAL INSPECTION - Neurological Exam Neurological Exam: Awake Neuro motor strength exam: Left Upper Extremity: 5, Right Upper Extremity: 4, Left Lower Extremity: 5, Right Lower Extremity: 3 - Psychiatric Exam Psychiatric exam: Normal Affect - Skin Skin Exam: Warm. Dry. In tact. absent: Diaphoretic Assessment and Plan - Assessment and Plan (Free Text) Plan: 1.Altered mental status * Likely due to medication induced sedation * discontinued trazadone 01/24/17 * CT brain: Chronic stroke, no acute findings (see full report) * 1/2NS @75cc/hr, with h/o CHF observe 2.Hypertensive urgency * Add clonidine * Continue hydralazine,Imdur,Zestril, and coreg * Lasix discontinued on 01/25/17 3.Chronic systolic CHF-Stable * Rales on auscultation (01/24/17) * chest x ray: Prominent consolidative opacification in the right mid to lower lung zone with small right pleural effusion. Post treatment interval followup is recommended to ensure resolution. * CT chest: Single lead left-sided AICD. Cardiomegaly. Trace effusion. Right hilar prominence. Follow-up CT of the chest with IV contrast may be considered for further evaluation. Hyperinflation consistent with COPD. Extensive emphysematous and fibrotic changes. Probable pneumonia within the right middle and right lower lobes. Recommend follow-up to clearing. 6 mm left lower lobe pulmonary nodule re-identified. Recommend CT at 6-12 months from initial detection, then CT at 18-24 months. * f/u sputum culture * continue home meds 4. Pneumonia * See imaging results above * Rocephin 1 g IV QD * Zithromax 500 mg IV QD * May discharge on PO antibiotics pending sputum culture 5.CVA with Right wekaness * CT brain: Chronic stroke, no acute findings (see full report) * stable 6.Cachexia * HIV negative * nutritional eval * swallow/speech eval: pureed diet with thin liquids since without dentures 7.COPD * Stable 8.History of substance abuse * UDS (01/21) positive for opiates only * 01/25 possible use in hospital however not confirmed * UDS (01/25) positive for opiates * ABG: pCO2 35; pO2 59; HCO3 25.8; pH 7.46 * Nicotine patch 9.DVT and GI prophylaxis <Lex Garcia - Last Filed: 01/26/17 15:04> Objective - Vital Signs/Intake and Output Vital Signs (last 24 hours): Temp Pulse Resp BP Pulse Ox 98.5 F 66 20 160/95 H 99 01/26/17 07:00 01/26/17 07:00 01/26/17 07:00 01/26/17 10:22 01/26/17 07:00 Intake and Output: 01/26/17 01/26/17 06:59 18:59 Intake Total 1000 1900 Output Total 600 4 Balance 400 1896 - Medications Medications: Current Medications Acetaminophen (Tylenol 325mg Tab) 650 mg PO Q6 PRN PRN Reason: Pain, moderate (4-7) Last Admin: 01/26/17 13:28 Dose: 650 mg Al Hydrox/Mg Hydrox/Simethicone (Maalox 30 Ml) 30 ml PO TID PRN PRN Reason: Indigestion / Heartburn Albuterol (Ventolin Hfa 90 Mcg/Actuation (8 G)) 2 puff IH RQID PRN PRN Reason: Wheezing Last Admin: 01/23/17 09:41 Dose: 2 puff Aspirin (Aspirin Chewable) 81 mg PO DAILY [facility] Last Admin: 01/26/17 10:22 Dose: 81 mg Carvedilol (Coreg) 12.5 mg PO BID [facility] Last Admin: 01/26/17 10:22 Dose: 12.5 mg Clonidine HCl (Catapres) 0.1 mg PO TID [facility] Last Admin: 01/26/17 10:22 Dose: 0.1 mg Heparin Sodium (Porcine) (Heparin) 5,000 units SC Q8 [facility] Last Admin: 01/26/17 05:06 Dose: 5,000 units Hydralazine HCl (Apresoline) 50 mg PO BID [facility] Last Admin: 01/26/17 10:21 Dose: 50 mg Hydroxyzine HCl (Atarax) 25 mg PO Q6H PRN PRN Reason: Anxiety Last Admin: 11/12/17 02:16 Dose: 25 mg Azithromycin 500 mg/ Sodium (Chloride) 250 mls @ 250 mls/hr IVPB DAILY@1030 [facility] Last Admin: 01/26/17 11:00 Dose: 250 mls/hr Ceftriaxone Sodium (Rocephin Iv 1 Gm Duplex) 50 mls @ 100 mls/hr IVPB DAILY [facility] Last Admin: 01/26/17 10:34 Dose: 100 mls/hr Sodium Chloride (Sodium Chloride 0.45%) 1,000 mls @ 75 mls/hr IV .[id number] [facility] Last Admin: 01/26/17 05:06 Dose: 75 mls/hr Isosorbide Mononitrate (Imdur) 60 mg PO DAILY [facility] Last Admin: 01/26/17 10:22 Dose: 60 mg Levetiracetam (Keppra) 500 mg PO BID [facility] Last Admin: 01/26/17 10:21 Dose: 500 mg Lisinopril (Zestril) 40 mg PO DAILY [facility] Last Admin: 01/26/17 11:00 Dose: 40 mg Loperamide HCl (Imodium) 2 mg PO Q8 PRN PRN Reason: Diarrhea Last Admin: 01/26/17 02:24 Dose: 2 mg Lorazepam (Ativan) 0.5 mg PO TID PRN PRN Reason: Agitation Nicotine (Nicoderm Cq) 1 patch TD DAILY [facility] Last Admin: 01/26/17 10:23 Dose: 1 patch Pantoprazole Sodium (Protonix Ec Tab) 40 mg PO DAILY [facility] Last Admin: 01/26/17 10:21 Dose: 40 mg Fluticasone/Salmeterol (Advair Diskus 250/50) 1 puff INH RQ12 [facility] - Labs Labs: 01/26/17 06:49 01/26/17 06:49 Attending/Attestation - Attestation I have personally seen and examined this patient.: Yes I have fully participated in the care of the patient.: Yes I have reviewed all pertinent clinical information, including history, physical exam and plan: Yes Notes (Text): 01/26/17 15:03 Medical attending: Patient was seen and examined by me, agrees the above note by medical affairs specialist. The patient looks very alert. As mentioned previously she was originally on 7 detox with a rapid response was called this was due to the patient being extremely somnolent as well as having episodes of very high blood pressure. She did have a head imaging that did not have any bleeding or ischemia brain. We took her off of a significant amount of medication that could cause somnolence. We also started the patient on some half-normal saline as well. A for the past couple of days now she has been more awake today she is a very pleasant affect she is very aware of her history and the is asking if she could go home. I need to point out that she is very cachectic appearing female. She explains to me that she does not walk on her own she has to wheelchairs and normally is mostly chair bound she claims Today she did not claim she was short of breath or coughing however yesterday she did become a chest x-ray yesterday did look pretty rough so we then followed up with a CAT scan. This CAT scan shows that she has a lot of emphysematous-like appearing lung tissue which is not surprising giving the patient smokes heavily. There was some question she had right middle lobe pneumonia as well she has been on IV antibiotics ever since coming over to the medical floors. The only thing is still pending is a sputum culture. It was a preliminary positive for gram-negative so were still waiting on it if it comes back before 4 :00 today and it's something that is sensitive to antibiotics that she's been receiving now and if we could send her home with by mouth antibiotics will still go home today. However if on the other hand it the antibiotics need to be changed or if this is a polyp that requires IV antibiotics she'll have to stay for additional day or so. She wasn't happy when I told her this she said she wanted to go home today monitor at the sputum culture Thank you very much, Lex Garcia
[2017-01-26] MEDS: Pantoprazole 40 mg EC Tab PO SCH (10:21)
[2017-01-26] MEDS: cefTRIAXone IV 1 gm in Dextros 50 ML IVPB SCH (10:34)
[2017-01-26] MEDS: Azithromycin 500 MG in Sodium Chloride 0.9% 250 ML IVPB SCH (11:00)
[2017-01-27] MEDS: Sodium Chloride 0.45% 1,000 ML IV SCH (04:47)
[2017-01-27 07:32] LABS: BASO # 0.1 K/uL (0.0-0.2); EOS # 0.1 K/uL (0.0-0.7); EOS % 1.9 % (0.0-4.0); HEMATOCRIT 37.7 % (34.0-47.0); LYMPH # 1.8 K/uL (1.0-4.3); LYMPH % 32.9 % (20.0-40.0); MEAN CELL VOLUME 80.2 fL (81.0-99.0); MEAN CORPUSCULAR HEMOGLOBIN 25.9 pg (27.0-31.0); MEAN CORPUSCULAR HGB CONC 32.3 g/dL (33.0-37.0); MEAN PLATELET VOLUME 8.5 fL (7.2-11.7); MONO # 0.5 K/uL (0.0-0.8); MONO % 8.6 % (0.0-10.0); RED CELL DISTRIBUTION WIDTH 16.7 % (11.5-14.5); WHITE BLOOD COUNT 5.4 K/uL (4.8-10.8)
[2017-01-27 08:16] LABS: ALKALINE PHOSPHATASE 68 U/L (38-126); ALT/SGPT 23 U/L (9-52); AST/SGOT 22 U/L (14-36); BILIRUBIN,TOTAL 0.5 mg/dL (0.2-1.3); BLOOD UREA NITROGEN 13 mg/dL (7-17); CALCIUM 7.7 mg/dl (8.6-10.4); CARBON DIOXIDE 22 mmol/L (22-30); CHLORIDE 100 mmol/L (98-107); GFR AFRICAN-AMERICAN > 60; GLUCOSE,RANDOM 92 mg/dL (65-105); MAGNESIUM 1.8 mg/dL (1.6-2.3); PHOSPHOROUS 2.4 mg/dL (2.5-4.5); POTASSIUM 3.9 mmol/L (3.6-5.2); SODIUM 130 mmol/L (132-148)
[2017-01-27 08:18] LABS: ALB/GLOB RATIO 1.1 (1.0-2.1)
[2017-01-27] MEDS: cefTRIAXone IV 1 gm in Dextros 50 ML IVPB SCH (10:08)
[2017-01-27] MEDS: Pantoprazole 40 mg EC Tab PO SCH (10:08)
[2017-01-27] MEDS: Azithromycin 500 MG in Sodium Chloride 0.9% 250 ML IVPB SCH (11:00)
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
[2017-01-27 15:53] VITALS: BP 114/72; PULSE 86; RESP 20; TEMP 98; O2SAT 93
== END 2017-01-27 16:50 | disposition home or self-care (01) | DRG 744 ==
LOC: C.ER 11:18 → C.9E 16:44 → C.7D 17:30 → C.6T 01-23 21:01
PROVIDERS: ADMIT Internal Medicine; ATTEND Hospitalist
PROC: HZ52ZZZ Individual Psychotherapy for Substance Abuse Treatment, Cognitive-Behavioral (ICD-10-PCS; principal; 2017-01-21)
PROC: HZ59ZZZ Individual Psychotherapy for Substance Abuse Treatment, Supportive (ICD-10-PCS; 2017-01-21)
PROC: HZ56ZZZ Individual Psychotherapy for Substance Abuse Treatment, Psychoeducation (ICD-10-PCS; 2017-01-21)
PROC: HZ2ZZZZ Detoxification Services for Substance Abuse Treatment (ICD-10-PCS; 2017-01-21)
DX: F11.23 Opioid dependence with withdrawal (principal); I11.0 Hypertensive heart disease with heart failure; I50.23 Acute on chronic systolic (congestive) heart failure; J15.0 Pneumonia due to Klebsiella pneumoniae; R64 Cachexia; R56.9 Unspecified convulsions; J44.0 Chronic obstructive pulmonary disease with (acute) lower respiratory infection; G81.91 Hemiplegia, unspecified affecting right dominant side; F10.239 Alcohol dependence with withdrawal, unspecified; E11.9 Type 2 diabetes mellitus without complications; F41.9 Anxiety disorder, unspecified; I25.10 Atherosclerotic heart disease of native coronary artery without angina pectoris; I25.2 Old myocardial infarction; I34.0 Nonrheumatic mitral (valve) insufficiency; F17.210 Nicotine dependence, cigarettes, uncomplicated; R91.8 Other nonspecific abnormal finding of lung field; R00.0 Tachycardia, unspecified; Z79.51 Long term (current) use of inhaled steroids; Z95.810 Presence of automatic (implantable) cardiac defibrillator; Z91.14 Patient's other noncompliance with medication regimen; Z79.82 Long term (current) use of aspirin; Z86.73 Personal history of transient ischemic attack (TIA), and cerebral infarction without residual deficits